=== PATIENT | male | born 1940 | race Caucasian/White ===

== ENCOUNTER 2018-06-06 13:26 | Emergency (ER) | payer OTHER, MEDICARE ==
[2018-06-06] MEDS ORDERED: FENTANYL CITR 100 MCG/2 ML ONE (13:42)
[2018-06-06 13:59] LABS: Absolute Monocytes 0.8 K/uL (0.1-1.3); Absolute Neutrophil 5.8 K/uL (1.8-8.0); Basophils % 0.8 % (0-1.3); Eosinophils % 1.3 % (0-4.4); Hematocrit 29.1 % (39.6-49.0); Lymphocytes % 13.5 % (15.3-44.8); MCH 40.7 pg (27.0-35.0); MCV 115.9 fL (80-100); Monocytes % 9.7 % (3.3-12.3); RBC Red Blood Cell Count 2.51 M/uL (4.33-5.43)
[2018-06-06 14:05] LABS: Protime INR 1.18
[2018-06-06 14:18] LABS: Albumin 3.6 g/dL (3.4-5.0); Bilirubin Direct 0.2 mg/dL (0-0.2); Bilirubin Total 0.5 mg/dL (0.2-1.0); CKMB Creatine Kinase MB 1.3 ng/mL (0.3-3.6); Magnesium 2.2 mg/dL (1.8-2.4); Potassium 4.3 mmol/L (3.5-5.1); Protein, Total 8.2 g/dL (6.4-8.2)
--- NOTE | 2018-06-06 14:58 | RAD REPORT ---
EXAM DESCRIPTION: CT - Chest For Pe Angio - 06/06/2018 2:43 pm CLINICAL HISTORY: Chest pain and shortness of breath COMPARISON: 2016 TECHNIQUE: Dynamically enhanced axial 3 mm thick images of the chest were obtained during administra tion of <100> mL Isovue 370 IV contrast. Coronal and oblique reconstruction images were generated and reviewed. Exam utilizes a protocol for optimal evaluation of pulmonary arterial tree. Maximum intensity projections 3D imaging was utilized All CT scans are performed using dose optimization technique as appropriate and may include automated exposure control or mA/KV adjustment according to patient size. FINDINGS: A pulmonary embolus is not seen. A thoracic aortic aneurysm is not noted. A small right pleural effusion seen. A pericardial effusion is not seen. Moderate right upper lobe and mild left lower lobe alveolar opacities are present. Calcified mediastinal and hilar lymph nodes are noted. IMPRESSION: Negative for a pulmonary embolism. Mild to moderate right lung alveolar opacities likely representing pneumonia. This should be followed until it is clear to help exclude a post obstructive process/underlying mass
[2018-06-06] MEDS ORDERED: CYANOCOBALAMIN 1000MCG/ML INJ IM ONE (15:00)
--- NOTE | 2018-06-06 15:54 | EDPHYS ---
Physician Documentation [facility] Name: Teo Doran Age: 77 yrs Sex: Male : 1940 Arrival Date: 06/06/2018 Time: 13:27 Bed 4 Private MD: Jose Feldman ED Physician Jonnie Barkley HPI: 06/06 13:59 This 77 yrs old Male presents to ER via Wheelchair with complaints of Chest snw Pain. 13:59 Onset: The symptoms/episode began/occurred 3 week(s) ago, and became worse and became snw persistent. Associated signs and symptoms: Pertinent positives: chest pain, shortness of breath. Modifying factors: The patient symptoms are alleviated by nothing, the patient symptoms are aggravated by movement. The patient has not experienced similar symptoms in the past. The patient has been recently seen by a physician: the patient's primary care provider, Dr. Feldman with similar presenting complaints, was given a prescription for pain medications. pt had a fall in Oct. No trauma since, no fever, pain to right chest wall, increases with movement. Saw PCP this week, given muscle relaxer, pain is worse per report. Historical: - Allergies: 13:36 PENICILLINS; sv - Home Meds: 13:36 None [Active]; sv - PMHx: 13:36 None; sv - PSHx: 13:36 None; sv - Immunization history:: Adult Immunizations up to date. - Social history:: Smoking status: Patient/guardian denies using tobacco. - Ebola Screening: : No symptoms or risks identified at this time. ROS: 13:59 Constitutional: Negative for fever, chills, and weight loss, Eyes: Negative for injury, snw pain, redness, and discharge, ENT: Negative for injury, pain, and discharge, Neck: Negative for injury, pain, and swelling, Abdomen/GI: Negative for abdominal pain, nausea, vomiting, diarrhea, and constipation, Back: Negative for injury and pain, : Negative for injury, bleeding, discharge, and swelling, MS/Extremity: Negative for injury and deformity, Skin: Negative for injury, rash, and discoloration, Neuro: Negative for headache, weakness, numbness, tingling, and seizure. 13:59 Cardiovascular: Positive for chest pain, with movement, of the right lateral anterior chest. 13:59 Respiratory: Positive for shortness of breath, at rest. Exam: 13:59 Constitutional: This is a well developed, well nourished patient who is awake, alert, snw and in no acute distress. Head/Face: Normocephalic, atraumatic. Eyes: Pupils equal round and reactive to light, extra-ocular motions intact. Lids and lashes normal. Conjunctiva and sclera are non-icteric and not injected. Cornea within normal limits. Periorbital areas with no swelling, redness, or edema. ENT: Nares patent. No nasal discharge, no septal abnormalities noted. Tympanic membranes are normal and external auditory canals are clear. Oropharynx with no redness, swelling, or masses, exudates, or evidence of obstruction, uvula midline. Mucous membranes moist. Neck: Trachea midline, no thyromegaly or masses palpated, and no cervical lymphadenopathy. Supple, full range of motion without nuchal rigidity, or vertebral point tenderness. No Meningismus. Chest/axilla: Normal chest wall appearance and motion. Nontender with no deformity. No lesions are appreciated. Cardiovascular: Regular rate and rhythm with a normal S1 and S2. No gallops, murmurs, or rubs. Normal PMI, no JVD. No pulse deficits. Respiratory: Lungs have equal breath sounds bilaterally, clear to auscultation and percussion. No rales, rhonchi or wheezes noted. No increased work of breathing, no retractions or nasal flaring. Abdomen/GI: Soft, non-tender, with normal bowel sounds. No distension or tympany. No guarding or rebound. No evidence of tenderness throughout. Back: No spinal tenderness. No costovertebral tenderness. Full range of motion. Skin: Warm, dry with normal turgor. Normal color with no rashes, no lesions, and no evidence of cellulitis. MS/ Extremity: Pulses equal, no cyanosis. Neurovascular intact. Full, normal range of motion. Neuro: Awake and alert, GCS 15, oriented to person, place, time, and situation. Cranial nerves II-XII grossly intact. Motor strength 5/5 in all extremities. Sensory grossly intact. Cerebellar exam normal. Normal gait. Vital Signs: 13:36 BP 149 / 68; Pulse 94; Resp 18; Temp 98.5; Pulse Ox 96% ; Weight 79.38 kg; Height 5 ft. sv 8 in. (172.72 cm); Pain 0/10; 14:30 BP 114 / 68; Pulse 75; Resp 16; Pulse Ox 94% on R/A; ph 15:16 BP 128 / 76; Pulse 70; Resp 16; Pulse Ox 95% on R/A; ph 16:00 BP 117 / 76; Pulse 72; Resp 18; Temp 98.0; Pulse Ox 96% on R/A; ph 13:36 Body Mass Index 26.61 (79.38 kg, 172.72 cm) sv MDM: 13:34 Patient medically screened. snw 15:36 Data reviewed: vital signs, nurses notes. Data interpreted: Pulse oximetry: on room air snw is 95 %. Interpretation: acceptable. Counseling: I had a detailed discussion with the patient and/or guardian regarding: the historical points, exam findings, and any diagnostic results supporting the discharge/admit diagnosis, lab results, radiology results, the need for outpatient follow up, to return to the emergency department if symptoms worsen or persist or if there are any questions or concerns that arise at home. Special discussion: Based on the history and exam findings, there is no indication for further emergent testing or inpatient evaluation. I discussed with the patient/guardian the need to see the primary care provider for further evaluation of the symptoms. 15:52 Response to treatment: the patient's symptoms have mildly improved after treatment, snw patient is well hydrated. 06/06 13:35 Order name: Blood Culture Adult (2) snw 06/06 13:35 Order name: Basic Metabolic Panel; Complete Time: 14:24 snw 06/06 13:35 Order name: CBC with Diff; Complete Time: 16:06 snw 06/06 13:35 Order name: Ckmb; Complete Time: 14:24 snw 06/06 13:35 Order name: CPK; Complete Time: 14:24 snw 06/06 13:35 Order name: LFT's; Complete Time: 14:24 snw 06/06 13:35 Order name: Magnesium; Complete Time: 14:24 snw 06/06 13:35 Order name: NT PRO-BNP; Complete Time: 14:24 snw 06/06 13:35 Order name: PT-INR; Complete Time: 14:11 snw 06/06 13:35 Order name: Ptt, Activated; Complete Time: 14:11 snw 06/06 13:35 Order name: Troponin (emerg Dept Use Only); Complete Time: 14:24 snw 06/06 13:35 Order name: CT Chest For PE Angio; Complete Time: 15:07 snw 06/06 13:35 Order name: Blood Culture EDWA 06/06 14:05 Order name: CBC Smear Scan; Complete Time: 16:06 EDMS 06/06 13:35 Order name: EKG; Complete Time: 13:36 snw 06/06 13:35 Order name: Cardiac monitoring; Complete Time: 13:36 snw 06/06 13:35 Order name: EKG - Nurse/Tech; Complete Time: 13:37 snw 06/06 13:35 Order name: IV Saline Lock; Complete Time: 13:42 snw 06/06 13:35 Order name: Labs collected and sent; Complete Time: 13:42 snw 06/06 13:35 Order name: O2 Per Protocol; Complete Time: 13:37 snw 06/06 13:35 Order name: O2 Sat Monitoring; Complete Time: 13:37 snw Administered Medications: 13:42 Drug: fentaNYL (PF) 25 mcg Route: IVP; Site: right antecubital; ss 14:10 Follow up: Response: No adverse reaction; Pain is decreased ss 15:15 Drug: Cyanocobalamin 1000 mcg Route: IM; Site: right deltoid; ph 16:04 Follow up: Response: No adverse reaction ph 15:55 Drug: LevaQUIN 500 mg Route: PO; ph 16:05 Follow up: Response: No adverse reaction ph Disposition: 06/07 08:25 Co-signature as Attending Physician, Jonnie Barkley MD I agree with the assessment and wa plan of care. Disposition: 06/06/18 15:53 Discharged to Home. Impression: Pneumonia, unspecified organism, Anemia, unspecified. - Condition is Stable. - Discharge Instructions: Anemia, Nonspecific, Costochondritis, Community-Acquired Pneumonia, Adult. - Prescriptions for Levaquin 500 mg Oral Tablet - take 1 tablet by ORAL route once daily for 10 days; 10 tablet. Tessalon Perles 100 mg Oral Capsule - take 1 capsule by ORAL route every 8 hours As needed; 15 capsule. Albuterol Sulfate 90 mcg/actuation - inhale 1-2 puff by INHALATION route every 4-6 hours; 1 Inhaler. - Medication Reconciliation Form, Thank You Letter, Antibiotic Education, Prescription Opioid Use form. - Follow up: Jose Feldman MD; When: 2 - 3 days; Reason: Recheck today's complaints, Continuance of care, Re-evaluation by your physician. Follow up: Emergency Department; When: As needed; Reason: Trouble breathing, Worsening of condition. Signatures: Dispatcher [employer] EDKari Perez RN RN dm5 Caitlin Miguel RN RN Petra Keys, VP COMMUNICATIONS-C VP COMMUNICATIONS-Csnw Ngoc Figueroa RN RN Cyndi Ware RN RN [facility], MD IFEOMA Cristina tx Corrections: (The following items were deleted from the chart) 06/06 16:14 15:53 06/06/2018 15:53 Discharged to Home. Impression: Pneumonia, unspecified organism; dm5 Anemia, unspecified. Condition is Stable. Forms are Medication Reconciliation Form, Thank You Letter, Antibiotic Education, Prescription Opioid Use. Follow up: Jose Feldman; When: 2 - 3 days; Reason: Recheck today's complaints, Continuance of care, Re-evaluation by your physician. Follow up: Emergency Department; When: As needed; Reason: Trouble breathing, Worsening of condition. snw
--- NOTE | 2018-06-06 15:54 | ER ---
Nurse's Notes [facility] Name: Teo Doran Age: 77 yrs Sex: Male : 1940 Arrival Date: 06/06/2018 Time: 13:27 Bed 4 Private MD: Jose Feldman Diagnosis: Pneumonia, unspecified organism;Anemia, unspecified Presentation: 06/06 13:31 Presenting complaint: Patient states: right sided chest pain and SOB for a couple of sv weeks, worse with movement. Pt seen his PCP on Sat and was prescribed muscle relaxers but with no relief. Pt denies injury or fall. Transition of care: patient was not received from another setting of care. Onset of symptoms was May 2018. Care prior to arrival: None. 13:31 Method Of Arrival: Wheelchair sv 13:31 Acuity: JACOBO 3 sv 13:55 Risk Assessment: Do you want to hurt yourself or someone else? Patient reports no ph desire to harm self or others. Initial Sepsis Screen: Does the patient meet any 2 criteria? No. Patient's initial sepsis screen is negative. Does the patient have a suspected source of infection? No. Patient's initial sepsis screen is negative. Historical: - Allergies: 13:36 PENICILLINS; sv - Home Meds: 13:36 None [Active]; sv - PMHx: 13:36 None; sv - PSHx: 13:36 None; sv - Immunization history:: Adult Immunizations up to date. - Social history:: Smoking status: Patient/guardian denies using tobacco. - Ebola Screening: : No symptoms or risks identified at this time. Screenin:54 Abuse screen: Denies threats or abuse. Denies injuries from another. Nutritional ph screening: No deficits noted. Tuberculosis screening: No symptoms or risk factors identified. Fall Risk No fall in past 12 months (0 pts). No secondary diagnosis (0 pts). IV access (20 points). Ambulatory Aid- None/Bed Rest/Nurse Assist (0 pts). Gait- Normal/Bed Rest/Wheelchair (0 pts) Mental Status- Oriented to own ability (0 pts). Total Foster Fall Scale indicates No Risk (0-24 pts). Assessment: 13:51 General: Appears in no apparent distress. comfortable, slender, well groomed, Behavior ph is calm, cooperative, appropriate for age, Denies fever, chills. Pain: Complains of pain in right lateral anterior chest Pain does not radiate. Pain began " 3 weeks ago". Neuro: Level of Consciousness is awake, alert, obeys commands, Oriented to person, place, time, situation, Denies weakness dizziness, headache. Cardiovascular: Reports chest pain, shortness of breath, Denies nausea, syncope, Capillary refill < 3 seconds Patient's skin is warm and dry. Rhythm is sinus rhythm Chest pain is located in right anterior chest wall is aggravated by activity. 13:53 Respiratory: Reports shortness of breath pain with movement Airway is patent ph Respiratory effort is even, unlabored, Respiratory pattern is regular, symmetrical, Breath sounds are clear bilaterally. Denies cough. GI: No signs and/or symptoms were reported involving the gastrointestinal system. Derm: Skin is intact, is healthy with good turgor, Skin is pink, warm \\T\\ dry. Musculoskeletal: Circulation, motion, and sensation intact. Range of motion: intact in all extremities. 15:15 Reassessment: Patient appears in no apparent distress at this time. Patient and/or ph family updated on plan of care and expected duration. Pain level reassessed. Patient is alert, oriented x 3, equal unlabored respirations, skin warm/dry/pink. Pt reports that pain has improved after IV pain medication, ERP at bedside to speak w/ pt and SO about results, awaiting d/c. Vital Signs: 13:36 BP 149 / 68; Pulse 94; Resp 18; Temp 98.5; Pulse Ox 96% ; Weight 79.38 kg; Height 5 ft. sv 8 in. (172.72 cm); Pain 0/10; 14:30 BP 114 / 68; Pulse 75; Resp 16; Pulse Ox 94% on R/A; ph 15:16 BP 128 / 76; Pulse 70; Resp 16; Pulse Ox 95% on R/A; ph 16:00 BP 117 / 76; Pulse 72; Resp 18; Temp 98.0; Pulse Ox 96% on R/A; ph 13:36 Body Mass Index 26.61 (79.38 kg, 172.72 cm) sv ED Course: 13:27 Patient arrived in ED. as 13:27 Jose Feldman MD is Private Physician. as 13:30 Cyndi Ware RN is Primary Nurse. ph 13:31 Arm band placed on right wrist. Patient placed in an exam room, on a stretcher. sv 13:34 Petra Keys FNP-C [facility]. snw 13:34 Jonnie Barkley MD is Attending Physician. snw 13:36 Triage completed. sv 13:39 Radiology exam delayed due to lab results not completed at this time. (BUN/Creatinine). nj 13:40 Initial lab(s) drawn, by me, sent to lab. First set of blood cultures drawn by me. ph Inserted saline lock: 20 gauge in right antecubital area, using aseptic technique. Blood collected. 13:47 EKG done, by instrument/control technician. reviewed by Petra PONCE. sm3 13:55 Patient has correct armband on for positive identification. Placed in gown. Bed in low ph position. Call light in reach. Side rails up X 1. alarm security or surveillance monitor on. Pulse ox on. NIBP on. Warm blanket given. 13:56 Patient maintains SpO2 saturation greater than 95% on room air. ph 14:[address] via stretcher. mw3 14:43 CT Chest For PE Angio In Process Unspecified. EDMS 15:19 No provider procedures requiring assistance completed. ph 15:53 Jose Feldman MD is Referral Physician. snw 16:10 IV discontinued, intact, bleeding controlled, No redness/swelling at site. Pressure ph dressing applied. Administered Medications: 13:42 Drug: fentaNYL (PF) 25 mcg Route: IVP; Site: right antecubital; ss 14:10 Follow up: Response: No adverse reaction; Pain is decreased ss 15:15 Drug: Cyanocobalamin 1000 mcg Route: IM; Site: right deltoid; ph 16:04 Follow up: Response: No adverse reaction ph 15:55 Drug: LevaQUIN 500 mg Route: PO; ph 16:05 Follow up: Response: No adverse reaction ph Outcome: 15:53 Discharge ordered by . snw 16:14 Patient left the ED. dm5 16:14 Discharged to home ambulatory, with significant other. ph 16:14 Condition: good 16:14 Discharge instructions given to patient, significant other, Instructed on discharge instructions, follow up and referral plans. medication usage, Demonstrated understanding of instructions, follow-up care, medications, Prescriptions given X 3. Signatures: Dispatcher [employer] Kari Acuna RN RN dm5 Caitlin Miguel RN RN sv Petra Keys, ADMITTING REPRESENTATIVE-C ADMITTING REPRESENTATIVE-Csnw Tran Lange Shelby, RN RN Cyndi Ware RN RN [facility], Corina Rodriguez 3 Cortney Mena mw3 Corrections: (The following items were deleted from the chart) 16:05 10:00 LevaQUIN 500 mg PO ph ph
[2018-06-06] MEDS ORDERED: levoFLOXacin 500 MG TAB ONE (16:01)
[2018-06-06 16:04] LABS: Blood Morphology Comment NOTED (NOT SEEN); Macrocytosis 3+; Platelet Estimate ADEQ; Urine White Blood Cell Casts OK
--- NOTE | 2018-06-07 08:34 | EKG ---
Test Date: 2018-06-06 Test Time: 13:31:42 Hide Washer: AG/S MEASUREMENT RESULTS: Intervals: Rate: 90 MN: 176 QRSD: 84 QT: 340 QTc: 415 Triplett: P: 35 MN: 176 QRS: -9 T: 34 INTERPRETIVE STATEMENTS: Normal sinus rhythm Normal ECG Compared to ECG 10/03/2005 07:53:00 No significant changes Electronically Signed On 06-07-18 08:33:55 CDT by Hitesh Vera
== END 2018-06-06 16:14 | disposition home or self-care (01) ==
LOC: ER 13:26
DX: J18.9 Pneumonia, unspecified organism (principal); D64.9 Anemia, unspecified; Z88.0 Allergy status to penicillin
CPT/HCPCS: 36415; 71275; 80048; 80076; 82550; 82553; 83735; 83880; 84484; 85025; 85610; 85730; 87040 ×2; 93005; 96372; 96374; 99285; J3010; J3420; Q9967

== ENCOUNTER 2020-11-07 12:32 | Inpatient (IN) | payer OTHER, MEDICARE ==
[2020-11-07 13:36] LABS: Absolute Lymphocytes (CBC) 1.3 K/uL (0.7-4.9); Hematocrit 21.4 % (39.6-49.0); Lymphocytes % 14.4 % (15.3-44.8); MPV 8.2 fL (7.6-11.3); RBC Red Blood Cell Count 1.67 M/uL (4.33-5.43)
--- NOTE | 2020-11-07 14:07 | RAD REPORT ---
EXAM DESCRIPTION: CT - Abdomen Pelvis W Contrast - 11/07/2020 1:49 pm CLINICAL HISTORY: Anemia, Severe SOB COMPARISON: Abdomen Pelvis W Contrast dated 07/02/2018 TECHNIQUE: Biphasic, helical CT imaging of the abdomen and pelvis was performed following 100 ml non -ionic IV contrast. No oral contrast given. All CT scans are performed using dose optimization technique as appropriate and may include automated exposure control or mA/KV adjustment according to patient size. FINDINGS: Extensive interstitial thickening present in both lung bases. This is not new but is more pronounced. This could be fibrosis with superimposed edema or infiltrate or simply progressive fibros is. No consolidated mass, pneumothorax or pleural effusion. Mild cardiomegaly with no pericardial or effusion. No suspicious liver lesion identifiable. Liver parenchymal attenuation is borderline for fatty infilt ration. Numerous granulomatous calcifications in the normal size spleen. No acute pancreatic process. Gallbladder and biliary tree are also without suspicious finding. Gallstones can be occult on CT guy ging. Symmetric renal function is seen with no hydronephrosis or suspicious renal mass. No pyelonephritis o r acute parenchymal process. No bladder abnormalities. No adrenal abnormalities. Calcifications are p resent in the prostate gland which is not abnormally enlarged. No dilated bowel loops or bowel wall thickening. Moderate stool volume seen throughout the colon. No appendicitis findings. No free air, free fluid or inflammatory stranding. No hernia, mass or bulky l ymphadenopathy. Disc and bone degenerative changes are present. No pathologic bone process seen. Significant by conca vity to the T11 body. Significant collapse of the superior endplate T9 -T10. Central endplate has par tially collapsed and L2 with peripheral wall height maintained. IMPRESSION: Contrast enhanced CT abdomen and pelvis showing no acute or emergent finding. Above detailed abdominal/pelvic findings are not substantially different the 2018 comparison. Prominent interstitial thickening in each lung base superimposed on a baseline fibrosis. Finding is p rogressive from 2018 and could be true progressive fibrosis, interstitial edema, infiltrate or a comb ination.
[2020-11-07 14:42] VITALS: BMI 20.2
[2020-11-07 14:52] LABS: BUN Blood Urea Nitrogen 24 mg/dL (7-18); Bicarbonate 28 mmol/L (21-32); Glucose Level 106 mg/dL (74-106); Potassium 4.9 mmol/L (3.5-5.1); Sodium Level 140 mmol/L (136-145); Transferrin 179 mg/dL (200-360)
[2020-11-07 15:00] LABS: Blood Morphology Comment NOTED (NOT SEEN); Macrocytosis 3+; Platelet Estimate ADEQ
[2020-11-07] MEDS ORDERED: NA CHLORIDE 0.9% 250 ML ONE (15:48)
[2020-11-07 16:42] LABS: Urine Appearance CLEAR; Urine Bilirubin NEGATIVE (NEG); Urine Blood NEGATIVE (NEG); Urine Color YELLOW; Urine Glucose NEGATIVE (NEG); Urine Protein NEGATIVE (NEG); Urine Specific Gravity >=1.030 (1.005-1.030); Urine Urobilinogen 0.2 mg/dL (0.2-1.0); Urine pH 6.5 (5.0-7.0)
[2020-11-07 16:48] LABS: Urine Microscopic Reflex NO UMIC
[2020-11-08] MEDS ORDERED: Ringers Lactate 1,000 ML IV ONE (11:45)
[2020-11-08] MEDS: METOCLOPRAMIDE 10 MG/2mL INJ IV SCH ×4 (12:00→20:52)
[2020-11-08] MEDS ORDERED: EPINEPHRINE/PF 1 MG/ML AMP ONE (12:03)
--- NOTE | 2020-11-08 12:18 | PN ---
The patient states that he does not feel that much different, although he is status post 2 units of b lood and his hemoglobin is 9 and unchanged. He is scheduled for an EGD, which will be done sometime today. Depending on that results, disposition will be made. HR/MODL Voice ID: [id number] Report ID: [id number]
[2020-11-08] MEDS ORDERED: propofoL 200 MG/20 ML VIAL IV ONE (12:24)
[2020-11-08] MEDS ORDERED: LIDOCAINE 1% MPF 30 ML VIAL ONE (12:24)
--- NOTE | 2020-11-08 13:22 | ENDO RPT ---
[address], [address] EGD PROCEDURE REPORT EXAM DATE: 11/08/2020 PATIENT NAME: Teo Doran MR#: [id number] BIRTHDATE: 1940 ATTENDING: Jonnie Dias Dr STATUS: inpatient - [facility] CRAFT COORDINATOR: Emily Riggs RN INDICATIONS: The patient is a 80 yr old Male here for an EGD due to anemia PROCEDURE PERFORMED: EGD with biopsy MEDICATIONS: Per Anesthesia. TOPICAL ANESTHETIC: none CONSENT: The patient understands the risks and benefits of the procedure and understands that these risks include, but are not limited to: sedation, allergic reaction, infection, perforation and/or bleeding. Alternative means of evaluation and treatment include, among others: physical exam, x-rays, and/or surgical intervention. The patient elects to proceed with this endoscopic procedure. DESCRIPTION OF PROCEDURE: During intra-op preparation period all mechanical medical equipment was checked for proper function. Hand hygiene and appropriate measures for infection prevention was taken. Procedure, possible complications, and alternatives including but not limited to the possibility of bleeding, perforation, tear, infection, sepsis, need for surgery, need for blood transfusion, and anesthesia related complications were explained to the patient. After the risks, benefits and alternatives of the procedure were thoroughly explained, Informed consent was verified, confirmed and timeout was successfully executed by the treatment team. The patient was placed in the left lateral position. The patient was anesthetized with topical anesthesia. Through the anesthetized oropharyngeal area, the scope was passed without any difficulty. The EG-[id number] ([id number]) endoscope was introduced through the mouth and advanced to the second portion of the duodenum. Retroflexed views revealed a small hiatal hernia. The gastroscope was then slowly withdrawn and removed. A small hiatal hernia was found. Duodenitis was found in the bulb of the duodenum. Multiple gastric biopsies were obtained and sent to pathology. Small bowel biopsies obtained with history of unexplained anemia. ADVERSE EVENTS: There were no complications. IMPRESSIONS: 1. Small hiatal hernia 2. Duodenitis in the bulb of the duodenum, s/p gastric biopsies 3. Small bowel biopsies obtained with history of unexplained anemia RECOMMENDATIONS: 1. await biopsy results 2. acid suppression therapy 3. colonoscopy REPEAT EXAM: Jonnie Dias Dr eSigned: Jonnie Dias Dr 11/08/2020 1:22 PM cc: Jose Feldman CPT CODES: ICD9 CODES: PATIENT NAME: Teo Doran MR#: [id number]
--- NOTE | 2020-11-08 13:23 | ENDO RPT ---
[address], [address] EGD PROCEDURE REPORT EXAM DATE: 11/08/2020 PATIENT NAME: Teo Doran MR#: [id number] BIRTHDATE: 1940 ATTENDING: Jonnie Dias Dr STATUS: inpatient - [facility] MANAGING DIRECTOR: Emily Riggs RN INDICATIONS: The patient is a 80 yr old Male here for an EGD due to anemia PROCEDURE PERFORMED: EGD with biopsy MEDICATIONS: Per Anesthesia. TOPICAL ANESTHETIC: none CONSENT: The patient understands the risks and benefits of the procedure and understands that these risks include, but are not limited to: sedation, allergic reaction, infection, perforation and/or bleeding. Alternative means of evaluation and treatment include, among others: physical exam, x-rays, and/or surgical intervention. The patient elects to proceed with this endoscopic procedure. DESCRIPTION OF PROCEDURE: During intra-op preparation period all mechanical medical equipment was checked for proper function. Hand hygiene and appropriate measures for infection prevention was taken. Procedure, possible complications, and alternatives including but not limited to the possibility of bleeding, perforation, tear, infection, sepsis, need for surgery, need for blood transfusion, and anesthesia related complications were explained to the patient. After the risks, benefits and alternatives of the procedure were thoroughly explained, Informed consent was verified, confirmed and timeout was successfully executed by the treatment team. The patient was placed in the left lateral position. The patient was anesthetized with topical anesthesia. Through the anesthetized oropharyngeal area, the scope was passed without any difficulty. The [id number] ([id number]) endoscope was introduced through the mouth and advanced to the second portion of the duodenum. Retroflexed views revealed a small hiatal hernia. The gastroscope was then slowly withdrawn and removed. A small hiatal hernia was found. Duodenitis was found in the bulb of the duodenum. Multiple gastric biopsies were obtained and sent to pathology. Small bowel biopsies obtained with history of unexplained anemia. ADVERSE EVENTS: There were no complications. IMPRESSIONS: 1. Small hiatal hernia 2. Duodenitis in the bulb of the duodenum, s/p gastric biopsies 3. Small bowel biopsies obtained with history of unexplained anemia RECOMMENDATIONS: 1. await biopsy results 2. acid suppression therapy 3. colonoscopy REPEAT EXAM: Jonnie Dias Dr eSigned: Jonnie Dias Dr 11/08/2020 1:22 PM cc: Jose Feldman CPT CODES: ICD9 CODES: PATIENT NAME: Teo Doran MR#: [id number]
[2020-11-08] MEDS: MAGNESIUM CITRATE 300 ML BOT PO SCH (14:33)
[2020-11-08] MEDS: GOLYTELY 4000 ML PO SCH (17:21)
--- NOTE | 2020-11-08 19:19 | CON ---
Date of Consultation: 11/08/2020 Reason For Consultation: Anemia of unknown etiology with a hemoglobin of 6.4 on admission. History Of Present Illness: The patient is an 80-year-old white male with history of compression fracture, trauma to the back and chronic reflux disease. The patient presented to the hospital due to anemia. Hemoglobin found to be 6.4 as an outpatient. Brought to hospital. Patient denies any melena, hematochezia, masses, coffee-ground emesis, hematuria, dysuria, polydipsia. He has had a colonoscopy 3 years ago with a colon polyp found at that time approximately in June 2017. No prior EGD. He also reports weight loss, anorexia, shortness of breath, fatigue over the past 3 months. As per the primary care physician the patient has been complaining of weight loss over the past few years actually with negative work up. Patient has also had a pulmonary workup due to findings on lung exam as in the past. Supposedly June 2018, pulmonary consult in [place], [place] was negative for evaluation. Past Medical History: Significant for gastroesophageal reflux disease, and trauma to the back with compression fracture. Otherwise, patient takes no medicines except for reflux disease medications at home. Allergies: TO PENICILLIN IT APPEARS. Family History: Patient is , 2 children. No tobacco. No alcohol, except for occasional rare during the year. Family History: Father of myocardial infarction. Mother of complications of diabetes. Allergies: TO PENICILLIN STATED ABOVE. Medications: In hospital include Protonix and Ensure formulation. Review of Systems: Patient has fatigue, weight loss, anorexia, shortness of breath. He denies any melena, hematochezia, hematemesis, coffee-ground emesis, hematuria, dysuria, polydipsia, chest pain, seizure, syncope, lower extremity edema, muscle aches, joint aches, backaches, depression, anxiety, seizures, syncope, chest pain. He does have some shortness of breath with weight loss and fatigue. Physical Examination: Vital Signs: He is 5 feet 10 inches, 141 pounds. BMI of 20.2 kg/sq m. He has a temperature of 97.5, pulse 71, respirations 16, blood pressure 118/58, O2 saturation 96%. General: This is an elderly male, lying in bed, mildly thin. HEENT: Normocephalic, atraumatic. Anicteric. Pupils equal, round, and reactive to light. Extraocular movements are intact. Oropharynx is clear. Neck: Supple, no masses. Respirations: Clear to auscultation bilaterally. Cardiac: Regular rate and rhythm. Abdomen: Positive bowel sounds. Soft, nontender, nondistended. No hepatosplenomegaly. Extremities: No clubbing, cyanosis, or edema. 2+ pulses. Neuro: Alert and oriented x3. Grossly nonfocal. 5/5 motor sensation to light touch. Laboratory Data: Patient has a hemoglobin of 6.4 at admission, 7.2 after 1 unit and up to 9.6 after 2 units of packed RBCs today. Yesterday white cell count of 8.7, MCV of 128.7, platelet count 363, polys of 75%, lymphocytes 14%, monocytes 9%, eosinophils 2%. Sodium 140, potassium 3.9, chloride 108, bicarb 28, BUN of 24, creatinine of 1.12, glucose 106, calcium 8.9, iron 219, TIBC of 251, transferrin 179 with iron saturation of 87.3%. Vitamin B12 greater than 2000. No folate checked, ferritin of 7036.1. UA was negative. COVID testing was negative. CT abdomen and pelvis, prominent interstitial thickening of lung base superimposed on baseline fibrosis, progressive since 2018. Could be progressive fibrosis, interstitial edema, infiltrate or combination. Anemia with hemoglobin 6.4, up to 9.6 after 2 units of packed RBCs, MCV of 128.7. Vitamin B12 greater than 2000, folate not checked, we need to check that. Iron saturation 87.3%, ferritin 736, possible territory hemochromatosis. His last colonoscopy 3 years ago with colon polyp found in June 2017. Weight loss, anorexia, shortness of breath, fatigue over the past 2-[address] showing infiltrates, positive edema in the bases, could be a lung disease. However, pulmonary consult in June 2018 was negative. Impression: 1. Anemia of unknown etiology 2. Weight loss, anorexia, shortness of breath and fatigue for 3 months. 3. History of trauma, compression fracture, and reflux disease. Recommendation: 1. Proceed with EGD and consider repeat colonoscopy. 2. Check folate. 3. Check hereditary hemochromatosis HFE gene analysis. 4. Check hepatitis panel and alpha-fetoprotein. 5. Pulmonology followup on discharge for changes in CT noted. JOVANNY/ROEL Voice ID: [id number] Report ID: [id number]
[2020-11-08] MEDS: ENSURE ENLIVE 237 ML CAN PO SCH (20:52)
--- NOTE | 2020-11-08 22:55 | HP ---
Date of Admission: 11/07/2020 Entrance Complaint: General malaise, weight loss, dyspnea. History Of Present Illness: The patient presented to the office a couple days prior to this admissio n with the above-outlined symptoms. He states these have been going on for the past few weeks, howev er they have become increasingly more severe specially the fatigue. He has been anorectic as well an d a blood work revealed the significant anemia enough to require transfusions and that is why arrange ments were being put in place to admit him for transfusions and further evaluation. The patient has had significant weight loss over the past few months and associated with this has been some depressio n of his appetite. No nausea, vomiting, or change of bowel movements. Past History: The patient has had episodes of weight loss before and also had some chest discomfort and general malaise a couple years ago. Workup at that time including EGD and colonoscopy and vascul ar workup were essentially normal. The patient has not been on any significant medications other papo n vitamins. Family History: Noncontributory. Social History: Nonsmoker and nondrinker. Physical Examination: General: The patient is a thin elderly male, in no acute distress, with stable vital signs. Head and Neck: Normocephalic. Pupils are equal and reactive to light and accommodation. Fundi nega tive. Trachea midline. Thyroid not palpable. ENT: Negative. Chest: Clear to P and A. Cardiovascular: PMI midclavicular line. Heart sounds normal. Peripheral pulses are present and equ al bilaterally. Abdomen: Minimal tenderness in paraumbilical midepigastric area. No guarding, rebound, tenderness, or rigidity. Bowel sounds normal. Extremities: Good tone and movement bilaterally. Reflexes physiologic Rectal: Deferred. Impression: Anemia, significant severe weight loss, unknown etiology. Plan: The patient will be admitted and transfused with 2 units of blood. Consultation was obtained with the hydraulic lift driver for EGD and probable colonoscopy. HR/MODL Voice ID: [id number]
[2020-11-09] MEDS: METOCLOPRAMIDE 10 MG/2mL INJ IV SCH (01:38)
--- NOTE | 2020-11-09 06:33 | EKG ---
Test Date: 2020-11-07 Test Time: 14:06:37 Digital Content Coordinator: NORMA MEASUREMENT RESULTS: Intervals: Rate: 76 SD: 166 QRSD: 74 QT: 368 QTc: 414 Beaver: P: 31 SD: 166 QRS: -19 T: 63 INTERPRETIVE STATEMENTS: Normal sinus rhythm Normal ECG Compared to ECG 06/06/2018 13:31:42 No significant changes Electronically Signed On 11-09-20 06:28:00 INTELLECTUAL PROPERTY MANAGER by Ming Elizabeth
[2020-11-09 08:53] LABS: Absolute Lymphocytes (CBC) 1.2 K/uL (0.7-4.9); Basophils % 1.5 % (0-1.3); Hematocrit 29.4 % (39.6-49.0); Lymphocytes % 16.1 % (15.3-44.8); MPV 8.1 fL (7.6-11.3)
[2020-11-09 08:59] LABS: Potassium 4.5 mmol/L (3.5-5.1)
[2020-11-09] MEDS: ENSURE ENLIVE 237 ML CAN PO SCH ×2 (09:00→12:29)
[2020-11-09] MEDS: PANTOPRAZOLE 40MG TABLET PO SCH ×2 (09:00→12:28)
[2020-11-09 10:05] LABS: Anisocytosis 3+; Blood Morphology Comment NOTED (NOT SEEN); Platelet Estimate ADEQ; White Blood Cell Scan OK (OK)
[2020-11-09 10:06] LABS: Macrocytosis 1+
[2020-11-09] MEDS: Ringers Lactate 1,000 ML IV ONE ×2 (10:45→11:02)
[2020-11-09] MEDS ORDERED: propofoL 200 MG/20 ML VIAL IV ONE ×2 (10:54)
[2020-11-09] MEDS ORDERED: LIDOCAINE 1% MPF 5 ML VIAL ONE (10:55)
--- NOTE | 2020-11-09 11:12 | ENDO RPT ---
[address], [address] COLONOSCOPY PROCEDURE REPORT EXAM DATE: 11/09/2020 PATIENT NAME: Teo Doran MR #: [id number] BIRTHDATE: 1940 ATTENDING: Jonnie Dias Dr STATUS: outpatient PRESS OPERATOR [employer]: Emily Riggs RN, Kandy Estevez RN, and Yeni Carey CST INDICATIONS: The patient is a 80 yr old Male here for a colonoscopy due to anemia and weight loss PROCEDURE PERFORMED: Colonoscopy MEDICATIONS: Per Anesthesia. ESTIMATED BLOOD LOSS: None CONSENT: The patient understands the risks and benefits of the procedure and understands that these risks include, but are not limited to: sedation, allergic reaction, infection, perforation and/or bleeding. Alternative means of evaluation and treatment include, among others: physical exam, x-rays, and/or surgical intervention. The patient elects to proceed with this endoscopic procedure. DESCRIPTION OF PROCEDURE: During intra-op preparation period all mechanical medical equipment was checked for proper function. Hand hygiene and appropriate measures for infection prevention was taken. Procedure, possible complications, alternatives including, but not limited to possibility of bleeding, perforation, tear, infection, sepsis, need for surgery, need for blood transfusion, were explained to the patient. After the risks, benefits and alternatives of the procedure were thoroughly explained, Informed consent was verified, confirmed and timeout was successfully executed by the treatment team. The patient was placed in the left lateral position. A digital rectal exam was performed and revealed no abnormalities of the rectum. After appropriate level of anesthesia, the scope was passed. The EC-[id number] ([id number]) endoscope was introduced through the anus and advanced to the terminal ileum which was intubated for a short distance. The quality of the prep was fair. The instrument was then slowly withdrawn as the colon was fully examined. Scope withdrawal time was 7 minutes. COLON FINDINGS: Small internal hemorrhoids were found. Retroflexed views revealed small hemorrhoids. The scope was then completely withdrawn from the patient and the procedure terminated. ADVERSE EVENTS: There were no complications. IMPRESSIONS: 1. Small internal hemorrhoids 2. Intubation to terminal ileum RECOMMENDATIONS: fiber rich diet RECALL: Colonoscopy not scheduled due to age (80 y.o.) Jonnie [address] Dr eSigned: Jonnie Dias Dr 11/09/2020 11:12 AM cc: Jose Feldman M.D. CPT CODES: ICD9 CODES: PATIENT NAME: Teo Doran MR#: [id number]
[2020-11-09 11:37] VITALS: O2SAT 98
[2020-11-09] MEDS: MAGNESIUM CITRATE 300 ML BOT PO SCH (13:00)
[2020-11-09] MEDS: GOLYTELY 4000 ML PO SCH (13:21)
[2020-11-09 15:39] VITALS: BP 155/67; TEMP 98.4
--- NOTE | 2020-11-09 15:47 | PN ---
Date of Progress Note: 11/09/2020 The patient feels somewhat better, but not I would think, significantly after his 2 blood transfusion brought his blood count up. Obviously, he has a macrocytic anemia. Questionable PA. He will be re ferred to hematology as an outpatient. He is without a problem. His endoscopy exams showed some pat hology indicative of the anemia. He will be followed as mentioned in an outpatient basis. HR/MODL Voice ID: [id number] Report ID: [id number]
--- NOTE | 2021-01-22 21:40 | DS ---
Date of Discharge: 11/09/2020 Chief Complaint: The patient was admitted to the hospital, being seen in the office for increasing c omplaint of fatigue. Hemoglobin done as part of routine workup revealed 6.4. He was therefore admit taryn for transfusion and further workup. The patient has also had some weight loss and evaluated by [facility] a year ago and when admitted, he was transfused with 2 units. He got his hemoglobin up to 9, although clinically stated he does feel that much better. An EGD was done, revealed a smal l area of . Biopsies were taken as he had a macrocytic anemia. In view of thes e findings, he was discharged to follow up with Hematology in fair condition on 11/09. Final Diagnoses: Macrocytic anemia of unknown etiology, duodenitis, weight loss of unknown etiology. HR/MODL Voice ID: [id number] Report ID: [id number]
== END 2020-11-09 17:12 | disposition home or self-care (01) | DRG 812 ==
LOC: 2ND 12:32 → OBSVTOIN 11-09 11:49
PROVIDERS: ADMIT Family Medicine; ATTEND Family Medicine
PROC: 30233N1 Transfusion of Nonautologous Red Blood Cells into Peripheral Vein, Percutaneous Approach (ICD-10-PCS; 2020-11-09)
PROC: 0DB68ZX Excision of Stomach, Via Natural or Artificial Opening Endoscopic, Diagnostic (ICD-10-PCS; principal; 2020-11-09 10:00)
DX: D53.9 Nutritional anemia, unspecified (principal); K44.9 Diaphragmatic hernia without obstruction or gangrene; K29.80 Duodenitis without bleeding; K21.9 Gastro-esophageal reflux disease without esophagitis; R63.4 Abnormal weight loss; K64.8 Other hemorrhoids; R63.0 Anorexia; Z88.0 Allergy status to penicillin; Z20.822 Contact with and (suspected) exposure to COVID-19
CPT/HCPCS: 36415; 36430; 74177; 80048; 81003; 82105; 82274; 82607; 82746; 83540; 84207; 84466; 85014; 85018; 85025; 85044; 85652; 86038; 86850; 86900; 86901; 88305; 88312; 93005; G0378; J0171; J2704; J2765; J7050; J7120; P9016; Q9967; U0003

== ENCOUNTER 2021-01-17 07:13 | Day surgery (SDC) | payer OTHER, MEDICARE ==
[2021-01-17] MEDS ORDERED: NA CHLORIDE 0.9% 250 ML ONE ×2 (08:51→12:42)
[2021-01-17 09:20] VITALS: O2SAT 98; BMI 18.6
[2021-01-17 11:40] VITALS: BP 110/57; TEMP 98.8
[2021-01-17 17:46] LABS: Hematocrit 25.1 % (39.6-49.0)
== END 2021-01-17 17:00 | disposition home or self-care (01) ==
LOC: DS 07:13
PROVIDERS: ATTEND Internal Medicine Hematology & Oncology
DX: D46.9 Myelodysplastic syndrome, unspecified (principal); D63.8 Anemia in other chronic diseases classified elsewhere
CPT/HCPCS: 36415; 86900; 86850; 86901; 85018; 85014; 36430; P9016 ×2; J7050 ×2

== ENCOUNTER 2021-02-27 09:22 | Emergency (ER) | payer OTHER, MEDICARE ==
--- OUTSIDE RECORDS SUMMARY | 2021-02-27 09:25 | XMS REPORT | Continuity of Care Document ---
:1940 Author Organization [facility] t Address [address] [place] [address] Dr. Carolina [address] [place] [id number] Care Team Providers Name Role Phone Unavailable Unavailable Unavailable Problems This patient has no known problems. Allergies, Adverse Reactions, Alerts This patient has no known allergies or adverse reactions. Medications This patient has no known medications. Procedures This patient has no known procedures. Encounters Start End Encounter Admission Attending Care Care Encounter Source Date/Time Date/Time Type Type Clinicians Facility Department ID 2020-12-19 2020-12-19 Outpatient [id number] [address] 09:29:00 09:29:00 Results This patient has no known results.
[2021-02-27 11:35] LABS: Absolute Lymphocytes (CBC) 0.9 K/uL (0.7-4.9); Basophils % 2.2 % (0-1.3); Hematocrit 26.1 % (39.6-49.0); Lymphocytes % 8.5 % (15.3-44.8); MPV 8.1 fL (7.6-11.3); RBC Red Blood Cell Count 2.32 M/uL (4.33-5.43)
[2021-02-27] MEDS ORDERED: NA CHLORIDE 0.9% 1,000 ML ONE (11:40)
[2021-02-27] MEDS ORDERED: HYDROCODONE/APAP 5/325 MG TAB ONE (11:40)
[2021-02-27 11:47] LABS: Protime INR 1.2
[2021-02-27 11:55] LABS: ALT/SGPT 18 U/L (12-78); AST/SGOT 15 U/L (15-37); Albumin 4.1 g/dL (3.4-5.0); Alkaline Phosphatase 87 U/L (45-117); BUN Blood Urea Nitrogen 27 mg/dL (7-18); Bicarbonate 31 mmol/L (21-32); Bilirubin Direct 0.2 mg/dL (0-0.2); Bilirubin Total 0.6 mg/dL (0.2-1.0); CKMB Creatine Kinase MB 1.1 ng/mL (0.3-3.6); Creatine Phosphokinase 44 U/L (39-308); Glucose Level 118 mg/dL (74-106); Lipase 53 U/L (73-393); Magnesium 2.4 mg/dL (1.8-2.4); Potassium 4.7 mmol/L (3.5-5.1); Protein, Total 7.9 g/dL (6.4-8.2); Sodium Level 140 mmol/L (136-145); Troponin (Emerg Dept Use Only) < 0.02 ng/mL (0.0-0.045)
--- NOTE | 2021-02-27 12:06 | RAD REPORT ---
EXAM DESCRIPTION: CT - Head C Spine Cap Wo Con - 02/27/2021 11:02 am TECHNIQUE: Computed axial tomography of the head and cervical spine was obtained. Coronal and sagitt al reconstruction was performed Computed axial tomography of the chest, abdomen and pelvis was obtained. Contrast was not requested. All CT scans are performed using dose optimization technique as appropriate and may include automated exposure control or mA/KV adjustment according to patient size. CLINICAL HISTORY: Head and neck injury with chest and abdominal pain status post fall COMPARISON: CT chest 2018 FINDINGS: An intracranial bleed is not seen. Mild to moderate low-density areas within periventricular, deep an d subcortical white matter likely ischemic changes secondary to small vessel disease The ventricles are normal in caliber. An extra-axial fluid collection is not noted. . Fluid within the sinuses/mastoids is not seen. A cervical fracture is not seen. No dislocation is noted. The evaluation of mediastinum, grace, vessels, solid organs and bowel are limited secondary to the lac k of contrast administration. A mediastinal hematoma is not noted. A pleural effusion is not seen. A lung contusion is not present. Bilateral pulmonary fibrosis. Minimally displaced fractures right seventh and posterior ribs The liver,spleen, pancreas, adrenals,kidneys and bladder do not demonstrate a traumatic injury. .Moderate compression fracture T8 vertebral body appears subacute. Additional old thoracic and lumbar vertebral body fractures. Small nonobstructing right renal calculi. Pulmonary and splenic granulomata. Calcified mediastinal and calcified hilar lymph nodes IMPRESSION: 1. No acute intracranial abnormality is seen. 2. A cervical fracture is not visualized. If the patient continues have symptoms to suggest intracran ial/spinal cord pathology MRI be recommended 3. Moderate subacute compression fracture T8 vertebral body. No retropulsion of fracture fragment int o spinal canal. 4. Minimally displaced fractures right posterior seventh and eighth ribs. No pneumothorax
--- NOTE | 2021-02-27 12:58 | EDPHYS ---
Physician Documentation [facility] Name: Teo Doran Age: 80 yrs Sex: Male : 1940 Arrival Date: 02/27/2021 Time: 09:27 Bed 20 Private MD: Jose Feldman ED Physician Meli Hou HPI: 02/27 10:57 This 80 yrs old Male presents to ER via Wheelchair with complaints of Fall ma2 Injury. 10:57 Details of fall: The patient fell from an upright position. Onset: The symptoms/episode ma2 began/occurred gradually, 1 day(s) ago. Severity of symptoms: At their worst the symptoms were mild, in the emergency department the symptoms are unchanged. The patient has not experienced similar symptoms in the past. Historical: - Allergies: : PENICILLINS; sv - Immunization history:: Client reports receiving the 2nd dose of the Covid vaccine, Client reports receiving the 1st dose of the Covid vaccine. - Social history:: Smoking status: Patient denies any tobacco usage or history of. Patient/guardian denies using alcohol, street drugs, The patient lives with family. - Family history:: not pertinent. ROS: 10:57 Constitutional: Negative for fever, chills, and weight loss. ma2 10:57 All other systems are negative. Exam: 10:57 Constitutional: This is a well developed, well nourished patient who is awake, alert, ma2 and in no acute distress. Eyes: Pupils equal round and reactive to light, extra-ocular motions intact. Lids and lashes normal. Conjunctiva and sclera are non-icteric and not injected. Cornea within normal limits. Periorbital areas with no swelling, redness, or edema. ENT: Nares patent. No nasal discharge, no septal abnormalities noted. Tympanic membranes are normal and external auditory canals are clear. Oropharynx with no redness, swelling, or masses, exudates, or evidence of obstruction, uvula midline. Mucous membranes moist. Neck: Trachea midline, no thyromegaly or masses palpated, and no cervical lymphadenopathy. Supple, full range of motion without nuchal rigidity, or vertebral point tenderness. No Meningismus. Chest/axilla: Normal chest wall appearance and motion. Nontender with no deformity. No lesions are appreciated. Cardiovascular: Regular rate and rhythm with a normal S1 and S2. No gallops, murmurs, or rubs. Normal PMI, no JVD. No pulse deficits. Respiratory: Lungs have equal breath sounds bilaterally, clear to auscultation and percussion. No rales, rhonchi or wheezes noted. No increased work of breathing, no retractions or nasal flaring. Abdomen/GI: Soft, non-tender, with normal bowel sounds. No distension or tympany. No guarding or rebound. No evidence of tenderness throughout. MS/ Extremity: Pulses equal, no cyanosis. Neurovascular intact. Full, normal range of motion. Neuro: Awake and alert, GCS 15, oriented to person, place, time, and situation. Cranial nerves II-XII grossly intact. Motor strength 5/5 in all extremities. Sensory grossly intact. Cerebellar exam normal. Normal gait. Vital Signs: 09:31 BP 113 / 70; Pulse 50; Resp 18; Temp 97.3; Pulse Ox 97% ; Weight 58.97 kg; Height 5 ft. sv 9 in. (175.26 cm); 10:41 BP 93 / 66; Pulse 81; Resp 16; Pulse Ox 97% ; bp 11:33 BP 123 / 77; Pulse 84; Resp 16; Pulse Ox 95% ; bp 13:00 BP 133 / 88; Pulse 89; Resp 17; Pulse Ox 95% ; bp 14:00 BP 128 / 74; Pulse 78; Resp 16; Temp 97.5; Pulse Ox 93% ; bp 09:31 Body Mass Index 19.20 (58.97 kg, 175.26 cm) sv MDM: 10:39 Patient medically screened. [facility] 12:55 Differential diagnosis: abrasion, contusion, fracture, laceration. Data reviewed: vital ny2 signs, nurses notes. Counseling: I had a detailed discussion with the patient and/or guardian regarding: the historical points, exam findings, and any diagnostic results supporting the discharge/admit diagnosis, the presence of at least one elevated blood pressure reading (>120/80) during this emergency department visit, the need for outpatient follow up. ED course: has 2 ribs fracture however pain is well controlled, ct shows possible spine fracture however he states had this few weeks ago, no back pain or tenderness at this time . 02/27 10:37 Order name: Basic Metabolic Panel ma2 02/27 10:37 Order name: CBC with Diff ma2 02/27 10:37 Order name: Ckmb ma2 02/27 10:37 Order name: CPK ma2 02/27 10:37 Order name: Hepatic Function ny2 02/27 10:37 Order name: Lipase; Complete Time: 12:38 ma2 02/27 10:37 Order name: Magnesium; Complete Time: 12:38 ma2 02/27 10:37 Order name: Protime (+inr); Complete Time: 12:38 ma2 02/27 10:37 Order name: Ptt, Activated; Complete Time: 12:38 ma2 02/27 10:37 Order name: Troponin (emerg Dept Use Only); Complete Time: 12:38 ma2 02/27 10:37 Order name: Basic Metabolic Panel; Complete Time: 12:38 EDMS 02/27 10:37 Order name: CBC with Automated Diff EDMS 02/27 10:37 Order name: CKMB Creatine Kinase MB; Complete Time: 12:38 EDMS 02/27 10:37 Order name: Creatine Phosphokinase; Complete Time: 12:38 EDMS 02/27 10:37 Order name: EKG; Complete Time: 10:37 ma2 02/27 10:37 Order name: Cardiac monitoring; Complete Time: 11:12 ny2 02/27 10:37 Order name: EKG - Nurse/Tech; Complete Time: 14:04 ny2 02/27 10:37 Order name: IV Saline Lock; Complete Time: 11:33 ma2 02/27 10:37 Order name: Labs collected and sent; Complete Time: 11:32 ma2 02/27 10:37 Order name: NPO; Complete Time: 11:12 ny2 02/27 10:37 Order name: O2 Per Protocol; Complete Time: 11:12 ny2 02/27 10:37 Order name: O2 Sat Monitoring; Complete Time: 11:12 ma2 02/27 10:37 Order name: Liver (Hepatic) Function; Complete Time: 12:38 EDMS 02/27 10:51 Order name: CT Traumagram (Head C Spine CAP wo con); Complete Time: 12:38 ma2 02/27 11:38 Order name: Manual Differential EDMS 02/27 10:37 Order name: Urine Dipstick-Ancillary (obtain specimen); Complete Time: 14:05 ma2 Administered Medications: 11:30 Drug: NS 0.9% 1000 ml Route: IV; Rate: 1 bolus; Site: right forearm; bp 14:04 Follow up: IV Status: Completed infusion; IV Intake: 1000ml bp 11:30 Drug: Elliott (HYDROcodone-acetaminophen) 5 mg-325 mg 1 tabs Route: PO; bp 13:03 Follow up: Response: Pain is decreased bp 13:00 Drug: morphine 4 mg Route: IVP; Site: right forearm; bp 14:00 Follow up: Response: Pain is decreased bp 13:00 Drug: Zofran (Ondansetron) 4 mg Route: IVP; Site: right antecubital; bp 14:00 Follow up: Response: No adverse reaction bp Disposition: 02/27/21 12:57 Discharged to Home. Impression: Multiple fractures of ribs, right side. - Condition is Stable. - Discharge Instructions: Rib Fracture, [id number]. - Prescriptions for Diclofenac Sodium 75 mg Oral Tablet Sustained Release - take 1 tablet by ORAL route 2 times per day; 30 tablet. - Medication Reconciliation Form, Thank You Letter, Antibiotic Education, Prescription Opioid Use form. - Follow up: Private Physician; When: Tomorrow; Reason: If symptoms return. Signatures: Dispatcher [employer] Caitlin Nolan RN RN Saeid Guzman RN RN bp Alzahri, Mohammad, MD MD ma2 Corrections: (The following items were deleted from the chart) 11:00 10:37 Head C Spine MPR Wo Con+CT.RAD.BRZ ordered. [facility] 14:05 12:57 02/27/2021 12:57 Discharged to Home. Impression: Multiple fractures of ribs, bp right side. Condition is Stable. Prescriptions for Diclofenac Sodium 75 mg Oral Tablet Sustained Release - take 1 tablet by ORAL route 2 times per day; 30 tablet. and Forms are Medication Reconciliation Form, Thank You Letter, Antibiotic Education, Prescription Opioid Use. Follow up: Private Physician; When: Tomorrow; Reason: If symptoms return. ma2
--- NOTE | 2021-02-27 12:58 | ER ---
Nurse's Notes [facility] Name: Teo Doran Age: 80 yrs Sex: Male : 1940 Arrival Date: 02/27/2021 Time: 09:27 Bed 20 Private MD: Jose Feldman Diagnosis: Multiple fractures of ribs, right side Presentation: 02/27 09:30 Chief complaint: Patient states: s/p fall after getting dizzy yesterday and landed on sv the floor on right side. c/o right side/rib pain. Care prior to arrival: None. Mechanism of Injury: Fall from standing position. Trauma event details: Injury occurred in the [facility], Injury occurred: at home. Injury occurred: February 26, 2021. 09:30 Method Of Arrival: Wheelchair sv 09:30 Acuity: JACOBO 3 sv 09:31 Coronavirus screen: Client denies travel out of the [place] in the last 14 days. At this sv time, the client does not indicate any symptoms associated with coronavirus-19. Ebola Screen: No symptoms or risks identified at this time. Risk Assessment: Do you want to hurt yourself or someone else? Patient reports no desire to harm self or others. Onset of symptoms was February 26, 2021. 09:31 Initial Sepsis Screen: Does the patient meet any 2 criteria? No. Patient's initial sv sepsis screen is negative. Does the patient have a suspected source of infection? No. Patient's initial sepsis screen is negative. Triage Assessment: 10:37 General: Appears in no apparent distress. uncomfortable, Behavior is cooperative, bp appropriate for age, anxious. Pain: Complains of pain in right lateral anterior chest. EENT: No deficits noted. Neuro: No deficits noted. Cardiovascular: No deficits noted. Respiratory: No deficits noted. GI: No signs and/or symptoms were reported involving the gastrointestinal system. : No signs and/or symptoms were reported regarding the genitourinary system. Derm: No deficits noted. Musculoskeletal: No deficits noted. Trauma Activation: Not Applicable Physician: ED Physician; Name: ; Notified At: ; Arrived At: Physician: General Surgeon; Name: ; Notified At: ; Arrived At: Physician: Radiology; Name: ; Notified At: ; Arrived At: Physician: Respiratory; Name: ; Notified At: ; Arrived At: Physician: Lab; Name: ; Notified At: ; Arrived At: Historical: - Allergies: 09:31 PENICILLINS; sv - Immunization history:: Client reports receiving the 2nd dose of the Covid vaccine, Client reports receiving the 1st dose of the Covid vaccine. - Social history:: Smoking status: Patient denies any tobacco usage or history of. Patient/guardian denies using alcohol, street drugs, The patient lives with family. - Family history:: not pertinent. Screenin:38 Abuse screen: Denies threats or abuse. Denies injuries from another. Nutritional bp screening: No deficits noted. Tuberculosis screening: No symptoms or risk factors identified. Fall Risk None identified. Assessment: 10:38 General: SEE TRIAGE NOTE. bp 11:31 Reassessment: No changes from previously documented assessment. Patient and/or family bp updated on plan of care and expected duration. Pain level reassessed. Patient is alert, oriented x 3, equal unlabored respirations, skin warm/dry/pink. PT RETURNED FROM CT. 13:00 Reassessment: No changes from previously documented assessment. Patient and/or family bp updated on plan of care and expected duration. Pain level reassessed. 14:01 Reassessment: PT D/C HOME VIA W/C WITH FAMILY, DX WITH MULTIPLE RIGHT RIB FX. bp Vital Signs: 09:31 BP 113 / 70; Pulse 50; Resp 18; Temp 97.3; Pulse Ox 97% ; Weight 58.97 kg; Height 5 ft. sv 9 in. (175.26 cm); 10:41 BP 93 / 66; Pulse 81; Resp 16; Pulse Ox 97% ; bp 11:33 BP 123 / 77; Pulse 84; Resp 16; Pulse Ox 95% ; bp 13:00 BP 133 / 88; Pulse 89; Resp 17; Pulse Ox 95% ; bp 14:00 BP 128 / 74; Pulse 78; Resp 16; Temp 97.5; Pulse Ox 93% ; bp 09:31 Body Mass Index 19.20 (58.97 kg, 175.26 cm) sv ED Course: 09:27 Patient arrived in ED. mr 09:27 Jose Feldman MD is Private Physician. mr 09:31 Triage completed. sv 09:31 Arm band placed on. sv 10:36 Saeid Cameron, ELANA is Primary Nurse. bp 10:37 Meli Hou MD is Attending Physician. ma2 10:38 Patient has correct armband on for positive identification. Bed in low position. Call bp light in reach. Side rails up X2. 11:02 CT Traumagram (Head C Spine CAP wo con) In Process Unspecified. EDMS 11:30 Inserted saline lock: 22 gauge in right forearm, using aseptic technique. Blood bp collected. 11:35 Hepatic Function Sent. sv 11:35 CPK Sent. sv 11:35 Ckmb Sent. sv 11:35 CBC with Diff Sent. sv 11:35 Basic Metabolic Panel Sent. sv 13:00 No provider procedures requiring assistance completed. IV discontinued, intact, bp bleeding controlled, No redness/swelling at site. Pressure dressing applied. Administered Medications: 11:30 Drug: NS 0.9% 1000 ml Route: IV; Rate: 1 bolus; Site: right forearm; bp 14:04 Follow up: IV Status: Completed infusion; IV Intake: 1000ml bp 11:30 Drug: [place] (HYDROcodone-acetaminophen) 5 mg-325 mg 1 tabs Route: PO; bp 13:03 Follow up: Response: Pain is decreased bp 13:00 Drug: morphine 4 mg Route: IVP; Site: right forearm; bp 14:00 Follow up: Response: Pain is decreased bp 13:00 Drug: Zofran (Ondansetron) 4 mg Route: IVP; Site: right antecubital; bp 14:00 Follow up: Response: No adverse reaction bp Intake: 14:04 IV: 1000ml; Total: 1000ml. bp Outcome: 12:57 Discharge ordered by . ma2 13:00 Discharged to home via wheelchair, with family. bp 13:00 Condition: stable 13:00 Discharge instructions given to patient, family, Instructed on discharge instructions, follow up and referral plans. medication usage, Demonstrated understanding of instructions, follow-up care, medications, Prescriptions given X 1. 14:05 Patient left the ED. bp Signatures: Dispatcher [employer] EDMS Caitlin Miguel, Carmen Lora RN, Brian, RN RN bp Alzahri, Mohammad, MD MD ma2 Corrections: (The following items were deleted from the chart) 09:33 09:31 Pulse 50bpm; Resp 18bpm; Pulse Ox 97%; Temp 97.3F; 58.97 kg; Height 5 ft. 9 in.; sv BMI: 19.2; sv
[2021-02-27 13:20] LABS: Anisocytosis 3+; Blood Morphology Comment NOTED (NOT SEEN); Macrocytosis 2+; Platelet Estimate ADEQ; Poikilocytosis 1+
[2021-02-27] MEDS ORDERED: MORPHINE 4 MG/ML SYR ONE (13:32)
[2021-02-27] MEDS ORDERED: ONDANSETRON 4 MG/2 ML VIAL ONE (13:33)
[2021-02-27 14:22] VITALS: BP 128/74; TEMP 97.5; O2SAT 93
--- NOTE | 2021-02-28 11:41 | EKG ---
Test Date: 2021-02-27 Test Time: 11:54:54 Rail Car Operator: BP MEASUREMENT RESULTS: Intervals: Rate: 77 OR: 150 QRSD: 70 QT: 376 QTc: 425 [place]: P: 85 OR: 150 QRS: -23 T: 35 INTERPRETIVE STATEMENTS: Normal sinus rhythm Normal ECG Compared to ECG 11/07/2020 14:06:37 No significant changes Electronically Signed On 02-28-21 11:39:36 CDT by Ming Elizabeth
== END 2021-02-27 14:05 | disposition home or self-care (01) ==
LOC: ER 09:22
DX: S22.41XA Multiple fractures of ribs, right side, initial encounter for closed fracture (principal); W19.XXXA Unspecified fall, initial encounter
CPT/HCPCS: 93005; 85025; 80048; 36415; 83735; 82550; 85610; 80076; 85730; 84484; 82553; 83690; 70450; 71250; 72125; J7030; J2405; 99284

== ENCOUNTER 2021-03-22 18:03 | Inpatient (IN) | payer OTHER, MEDICARE ==
--- OUTSIDE RECORDS SUMMARY | 2021-03-22 18:05 | XMS REPORT | Continuity of Care Document ---
:1940 Author Organization [facility] t Address [address] [place] [address] Dr. Carolina [address] [place] [id number] Care Team Providers Name Role Phone Unavailable [...]
[2021-03-22 19:14] LABS: Basophils % 3.4 % (0-1.3); Hematocrit 22.1 % (39.6-49.0); MPV 8.6 fL (7.6-11.3); RBC Red Blood Cell Count 1.91 M/uL (4.33-5.43)
[2021-03-22 19:17] LABS: Protime INR 1.16
[2021-03-22] MEDS ORDERED: ONDANSETRON 4 MG/2 ML VIAL ONE (19:18)
[2021-03-22] MEDS ORDERED: MORPHINE 2 MG/ML SYR ONE (19:18)
--- NOTE | 2021-03-22 19:19 | RAD REPORT ---
EXAM DESCRIPTION: RAD - Chest Single View - 03/22/2021 7:07 pm CLINICAL HISTORY: SOB Chest pain. COMPARISON: Chest Pa And Lat (2 Views) dated 11/02/2020; Chest Pa And Lat (2 Views) dated 07/08/2018; Chest Pa And Lat (2 Views) dated 09/15/2016; CHEST PA AND LAT 2 VIEW dated 10/23/2013 FINDINGS: Portable technique limits examination quality. Emphysematous changes are present throughout the lungs. No focal infiltrate detected. The heart is up per limit normal in size. No displaced fractures. IMPRESSION: Mild diffuse COPD.
[2021-03-22 19:21] LABS: ALT/SGPT 17 U/L (12-78); AST/SGOT 31 U/L (15-37); Albumin 3.6 g/dL (3.4-5.0); Alkaline Phosphatase 129 U/L (45-117); BUN Blood Urea Nitrogen 32 mg/dL (7-18); Bicarbonate 26 mmol/L (21-32); Bilirubin Direct 0.2 mg/dL (0-0.2); Bilirubin Total 0.6 mg/dL (0.2-1.0); Glucose Level 81 mg/dL (74-106); Magnesium 2.1 mg/dL (1.8-2.4); NT PRO-BNP 449 pg/mL (<450); Potassium 4.2 mmol/L (3.5-5.1); Sodium Level 143 mmol/L (136-145); Troponin (Emerg Dept Use Only) < 0.02 ng/mL (0.0-0.045)
[2021-03-22 19:31] LABS: Anisocytosis 2+; Blood Morphology Comment NOTED (NOT SEEN); Macrocytosis 2+; Platelet Estimate ADEQ
--- NOTE | 2021-03-22 20:00 | RAD REPORT ---
EXAM DESCRIPTION: CTAbdomen Pelvis W Contrast - 03/22/2021 7:39 pm CLINICAL HISTORY: Abdominal pain. abdominal pain COMPARISON: Abdomen Pelvis W Contrast dated 11/07/2020; Abdomen Pelvis W Contrast dated 07/02/2018 ; Bone Imaging Whole Body dated 03/01/2021; Head C Spine Cap Wo Con dated 02/27/2021 TECHNIQUE: Biphasic CT imaging of the abdomen and pelvis was performed with 100 ml non-ionic IV cont rast. All CT scans are performed using dose optimization technique as appropriate and may include automated exposure control or mA/KV adjustment according to patient size. FINDINGS: Emphysematous changes are present in both the lung bases. There is small oblong soft tissue lesions seen in the fat anterior to the right lobe of the liver briana suring 8 mm. Small soft tissue density lesions also noted in the fat of the left upper quadrant. Ther e is a vague low-density area seen within the anterior right lobe of the liver measuring 16 x 10 mm. No intra or extrahepatic biliary tree dilatation seen. There is evidence of an irregular soft tissue mass within the left upper quadrant fat measuring appro ximately 8.0 x 5.1 cm. This soft tissue appears to insinuate to the level of the splenic hilum. Small soft tissue lesions are also seen in the omental fat of the right sided abdomen. Soft tissue density focal fullness is noted in the pancreatic tail measuring 3.2 x 1.9 cm, a signific ant change since the prior study. Several calculi are present in the upper right kidney without hydronephrosis. Mild left hydronephrosi s. Significant stool is present in the rectosigmoid colon. No bowel obstruction. Compression fracture affects the T11 vertebral body with significant right paraspinal soft tissue thi ckening measuring up to 11 mm. Mild central compression deformity affects the L2 vertebral body with mild paraspinal thickening on the left measuring up to 5 mm. IMPRESSION: Evidence of an irregular soft tissue mass in the left upper quadrant between the spleen and the stomach noted. This is suspicious for a neoplastic process. Tail of the pancreas demonstrates a thickened appearance compared to the 11/07/2020 study. Compression deformities of T11 and L2 are present with paraspinal soft tissue thickening. In particul ar, the T11 fracture soft tissue component appears more prominent than on prior study. This could pot entially indicate pathologic etiology.
--- NOTE | 2021-03-22 20:21 | EDPHYS ---
Physician Documentation [facility] Name: Teo Doran Age: 80 yrs Sex: Male : 1940 Arrival Date: 03/22/2021 Time: 18:11 Bed 5 Private MD: ED Physician Malvin Shelton HPI: 03/22 20:16 This 80 yrs old Male presents to ER via EMS with complaints of Abdominal jmm Pain, Shortness Of Breath. 20:16 The patient presents with abdominal pain. Onset: The symptoms/episode began/occurred jmm gradually, 2 month(s) ago. The symptoms do not radiate. Associated signs and symptoms: Pertinent positives: abdominal pain. This is an 80 year old male that presents to the ED with worsening chronic abdominal pain. Which intensified this evening. Maeve complains of sob. Is currently being treated for anemia. . Historical: - Allergies: 18:21 PENICILLINS; ld1 - Home Meds: 18:21 fentanyl 25 mcg/hr Topical pt72 [Active]; esomeprazole magnesium 40 mg oral cpDR 1 cap ld1 once daily [Active]; tramadol 50 mg Oral tab 1 tab every 4-6 hours [Active]; midodrine 5 mg oral tab 1 tabs 3 times per day [Active]; zolpidem 5 mg Oral tab 1 tab once daily [Active]; - PMHx: 18:21 None; ld1 - PSHx: 18:21 None; ld1 - Immunization history:: Adult Immunizations up to date. - Social history:: Smoking status: Patient denies any tobacco usage or history of. Patient/guardian denies using alcohol. ROS: 20:16 Constitutional: Negative for fever, chills, and weight loss, Cardiovascular: Negative jmm for chest pain, palpitations, and edema. 20:16 Respiratory: Positive for shortness of breath. 20:16 Abdomen/GI: Positive for abdominal pain. 20:16 All other systems are negative. Exam: 20:16 Constitutional: This is a well developed, well nourished patient who is awake, alert, jmm and in no acute distress. Head/Face: atraumatic. Eyes: EOMI, no conjunctival erythema appreciated ENT: Moist Mucus Membranes Neck: Trachea midline, Supple Chest/axilla: Normal chest wall appearance and motion. Cardiovascular: Regular rate and rhythm. No edema appreciated Respiratory: Normal respirations, no respiratory distress appreciated 20:16 Abdomen/GI: Inspection: abdomen appears normal, Bowel sounds: normal, Palpation: soft, mild abdominal tenderness, in the left upper quadrant and left lower quadrant. 20:16 Back: pain, is absent, ROM is normal. 20:16 Musculoskeletal/extremity: ROM: intact in all extremities. 20:16 Skin: Appearance: Color: normal in color. 20:16 Neuro: Orientation: is normal, Mentation: is normal, Memory: is normal. 20:16 Psych: Behavior/mood is pleasant, cooperative. Vital Signs: 18:17 BP 153 / 80; Pulse 114; Resp 18; Temp 98.5(O); Pulse Ox 98% on 2 lpm NC; Pain 8/10; ld1 18:53 BP 112 / 68; Pulse 97; Resp 18; Temp 98.5(O); Pulse Ox 100% on R/A; Weight 58.97 kg; ld1 Height 5 ft. 10 in. (177.80 cm); Pain 10/10; 20:00 BP 115 / 72; Pulse 99; Resp 28; Pulse Ox 95% on 2 lpm NC; jb4 21:30 BP 110 / 71; Pulse 91; Resp 20 S; Pulse Ox 97% ; ad5 18:53 Body Mass Index 18.65 (58.97 kg, 177.80 cm) ld1 MDM: 18:24 Patient medically screened. [facility] 20:19 Data reviewed: vital signs, nurses notes. Counseling: I had a detailed discussion with [facility] the patient and/or guardian regarding: the historical points, exam findings, and any diagnostic results supporting the discharge/admit diagnosis, lab results, radiology results, the need for further work-up and treatment in the hospital. ED course: I discussed the patient with Dr. Feldman whom accepted the patient for admission. . 03/22 18:30 Order name: Basic Metabolic Panel; Complete Time: 19:23 [facility] 03/22 18:30 Order name: CBC with Diff; Complete Time: 19:58 [facility] 03/22 18:30 Order name: LFT's; Complete Time: 19:23 [facility] 03/22 18:30 Order name: Magnesium; Complete Time: 19:23 [facility] 03/22 18:30 Order name: NT PRO-BNP; Complete Time: 19:23 [facility] 03/22 18:30 Order name: PT-INR; Complete Time: 19:58 [facility] 03/22 18:30 Order name: Troponin (emerg Dept Use Only); Complete Time: 19:23 [facility] 03/22 18:30 Order name: Type And Screen [facility] 03/22 19:31 Order name: Manual Differential; Complete Time: 19:58 EDNM 03/22 20:28 Order name: Basic Metabolic Panel [facility] 03/22 20:28 Order name: Basic Metabolic Panel [facility] 03/22 20:28 Order name: CBC with Automated Diff ED[facility] 03/22 20:28 Order name: CBC with Automated Diff [facility] 03/22 18:30 Order name: XRAY Chest (1 view); Complete Time: 19:23 [facility] 03/22 18:30 Order name: EKG; Complete Time: 18:31 [facility] 03/22 18:30 Order name: Cardiac monitoring; Complete Time: 18:39 [facility] 03/22 18:30 Order name: EKG - Nurse/Tech; Complete Time: 18:41 [facility] 03/22 18:30 Order name: IV Saline Lock; Complete Time: 18:42 [facility] 03/22 18:30 Order name: Labs collected and sent; Complete Time: 18:53 [facility] 03/22 18:30 Order name: O2 Per Protocol; Complete Time: 18:39 [facility] 03/22 18:30 Order name: O2 Sat Monitoring; Complete Time: 18:39 [facility] 03/22 19:24 Order name: CT Abd/Pelvis - IV Contrast Only; Complete Time: 20:07 [facility] 03/22 20:28 Order name: CONS Physician Consult [facility] 03/22 20:28 Order name: Regular [facility] 03/22 21:30 Order name: SARS-COV-2 RT PCR EDNM Administered Medications: No medications were administered Disposition: 03/22/21 20:21 Hospitalization ordered by Jose Feldman for Observation. Preliminary diagnosis are Generalized intra-abdominal and pelvic swelling, mass and lump, Dehydration, Anemia, unspecified, Dyspnea. - Bed requested for Telemetry/MedSurg (observation). - Status is Observation. ad5 - Condition is Stable. - Problem is new. - Symptoms are unchanged. Addendum: 03/25/2021 07:03 Co-signature as Attending Physician, Malvin Shelton MD. r n Signatures: Dispatcher [employer] EDNM Urbano Chavez PA PA [facility] Keegan Isabel, RN Malvin Zambrano MD MD rn Dibbern, Lauren, RN RN ld1 Arnoldo Caldwella ad5 Corrections: (The following items were deleted from the chart) 03/22 20:38 20:21 CORONAVIRUS+MR.LAB.BRZ ordered. EDNM EDNM 22:11 20:21 Hospitalization Ordered by Jose Feldman MD for Observation. Preliminary em diagnosis is Generalized intra-abdominal and pelvic swelling, mass and lump; Dehydration; Anemia, unspecified; Dyspnea. Bed requested for Telemetry/MedSurg (observation). Status is Observation. Condition is Stable. Problem is new. Symptoms are unchanged. [facility] 23:05 22:11 03/22/2021 20:21 Hospitalization Ordered by Jose Feldman MD for Observation. ad5 Preliminary diagnosis is Generalized intra-abdominal and pelvic swelling, mass and lump; Dehydration; Anemia, unspecified; Dyspnea. Bed requested for Telemetry/MedSurg (observation). Status is Observation. Condition is Stable. Problem is new. Symptoms are unchanged. em
--- NOTE | 2021-03-22 20:21 | ER ---
Nurse's Notes [facility] Name: Teo Doran Age: 80 yrs Sex: Male : 1940 Arrival Date: 03/22/2021 Time: 18:11 Bed 5 Private MD: Diagnosis: Generalized intra-abdominal and pelvic swelling, mass and lump;Dehydration;Anemia, unspecified;Dyspnea Presentation: 03/22 18:17 Chief complaint: EMS states: ABD PAIN, SOB X 5 MONTHS. Coronavirus screen: At this ld1 time, the client does not indicate any symptoms associated with coronavirus-19. Ebola Screen: No symptoms or risks identified at this time. Initial Sepsis Screen: Does the patient meet any 2 criteria? No. Patient's initial sepsis screen is negative. Does the patient have a suspected source of infection? No. Patient's initial sepsis screen is negative. Risk Assessment: Do you want to hurt yourself or someone else? Patient reports no desire to harm self or others. Onset of symptoms was October 2020. 18:17 Method Of Arrival: EMS: [facility] ld1 18:17 Acuity: JACOBO 3 ld1 Triage Assessment: 18:21 General: Appears in no apparent distress. comfortable, Behavior is calm, cooperative, ld1 appropriate for age. Pain: Complains of pain in right upper quadrant and right lower quadrant Pain does not radiate. Pain currently is 8 out of 10 on a pain scale. Quality of pain is described as sharp, stabbing, Pain began PT states this pain has been occurring for approximately a year now. Is intermittent. EENT: No signs and/or symptoms were reported regarding the EENT system. Neuro: Level of Consciousness is awake, alert, obeys commands, Oriented to person, place, time, situation, Appropriate for age. Cardiovascular: Capillary refill < 3 seconds Patient's skin is warm and dry. Rhythm is sinus rhythm. Respiratory: Airway is patent Respiratory effort is even, unlabored, Respiratory pattern is regular, symmetrical. GI: Abdomen is flat, non-distended, Abd is soft and non tender X 4 quads. Reports lower abdominal pain, upper abdominal pain. : No signs and/or symptoms were reported regarding the genitourinary system. Derm: No signs and/or symptoms reported regarding the dermatologic system. Musculoskeletal: No signs and/or symptoms reported regarding the musculoskeletal system. Historical: - Allergies: 18:21 PENICILLINS; ld1 - Home Meds: 18:21 fentanyl 25 mcg/hr Topical pt72 [Active]; esomeprazole magnesium 40 mg oral cpDR 1 cap ld1 once daily [Active]; tramadol 50 mg Oral tab 1 tab every 4-6 hours [Active]; midodrine 5 mg oral tab 1 tabs 3 times per day [Active]; zolpidem 5 mg Oral tab 1 tab once daily [Active]; - PMHx: 18:21 None; ld1 - PSHx: 18:21 None; ld1 - Immunization history:: Adult Immunizations up to date. - Social history:: Smoking status: Patient denies any tobacco usage or history of. Patient/guardian denies using alcohol. Screenin:24 Abuse screen: Denies threats or abuse. Denies injuries from another. Nutritional ld1 screening: No deficits noted. Tuberculosis screening: No symptoms or risk factors identified. Fall Risk IV access (20 points). Assessment: 18:24 Reassessment: See triage assessment. ld1 18:53 Reassessment: Patient appears in no apparent distress at this time. No changes from ld1 previously documented assessment. Patient is alert, oriented x 3, equal unlabored respirations, skin warm/dry/pink. 19:00 Reassessment: Pt is resting comfortably in bed with no s/s of pain or distress noted. jb4 Respirations remain even, and tachypneic. Family is at the bedside. 19:58 Reassessment: Patient appears in no apparent distress at this time. No changes from jb4 previously documented assessment. Patient and/or family updated on plan of care and expected duration. Pain level reassessed. 21:00 Reassessment: Patient appears in no apparent distress at this time. Patient and/or ad5 family updated on plan of care and expected duration. Pain level reassessed. Patient is alert, oriented x 3, equal unlabored respirations, skin warm/dry/pink. Vital Signs: 18:17 BP 153 / 80; Pulse 114; Resp 18; Temp 98.5(O); Pulse Ox 98% on 2 lpm NC; Pain 8/10; ld1 18:53 BP 112 / 68; Pulse 97; Resp 18; Temp 98.5(O); Pulse Ox 100% on R/A; Weight 58.97 kg; ld1 Height 5 ft. 10 in. (177.80 cm); Pain 10/10; 20:00 BP 115 / 72; Pulse 99; Resp 28; Pulse Ox 95% on 2 lpm NC; jb4 21:30 BP 110 / 71; Pulse 91; Resp 20 S; Pulse Ox 97% ; ad5 18:53 Body Mass Index 18.65 (58.97 kg, 177.80 cm) ld1 ED Course: 18:11 Patient arrived in ED. 18:15 Urbano Chavez PA is PHCP. [facility] 18:15 Malvin Shelton MD is Attending Physician. [facility] 18:17 Nicole Suarez, RN is Primary Nurse. ld1 18:19 Triage completed. ld1 18:21 Arm band placed on right wrist. ld1 18:24 Patient has correct armband on for positive identification. Bed in low position. Call ld1 light in reach. Side rails up X2. site monitor on. Pulse ox on. NIBP on. Door closed. Noise minimized. Warm blanket given. 18:24 Maintain EMS IV. Dressing intact. Good blood return noted. Site clean \T\ dry. Gauge \T\ ld 1 site: 20G RAC. 19:05 XRAY Chest (1 view) In Process Unspecified. EDMS 19:06 Primary Nurse role handed off by Nicole Suarez, ELANA [facility] 19:06 Herberth Edwards, RN is Primary Nurse. [facility] 19:39 CT Abd/Pelvis - IV Contrast Only In Process Unspecified. EDMS 20:20 Jose Feldman MD is Hospitalizing Provider. [facility] 22:23 No provider procedures requiring assistance completed. Patient admitted, IV remains in ad5 place. Administered Medications: No medications were administered Outcome: 20:21 Decision to Hospitalize by Provider. jmm 22:23 Admitted to Med/surg accompanied by nurse, via stretcher, with oxygen, Report called to ad5 ELANA Winn 22:23 Condition: stable 22:23 Instructed on the need for admit, Demonstrated understanding of instructions. 23:05 Patient left the ED. ad5 Signatures: Dispatcher [employer] EDMS Urbano Chavez PA PA [facility] Camila Dotson RN RN Herberth Edwards RN RN [facility] Nicole Saurez, RN RN ld1 Walter Caldwell ad5
[2021-03-22] MEDS ORDERED: ACETAMINOPHEN 500 MG TAB PO PRN (20:24)
[2021-03-22] MEDS ORDERED: ONDANSETRON 4 MG/2 ML VIAL IV PRN (20:24)
[2021-03-22] MEDS ORDERED: NA CHLORIDE 0.9% 1,000 ML IV SCH (21:00)
[2021-03-22 23:26] VITALS: BMI 16.5
[2021-03-23] MEDS: ZOLPIDEM TARTRATE 5 MG TABLET PO PRN (00:07)
[2021-03-23 04:20] LABS: Absolute Lymphocytes (CBC) 1.4 K/uL (0.7-4.9); Basophils % 2.1 % (0-1.3); Lymphocytes % 11.2 % (15.3-44.8); MPV 8.4 fL (7.6-11.3); RBC Red Blood Cell Count 1.66 M/uL (4.33-5.43)
[2021-03-23 04:34] LABS: Hematocrit 19.2 % (39.6-49.0)
[2021-03-23 04:37] LABS: Potassium 4.5 mmol/L (3.5-5.1)
[2021-03-23] MEDS: D5 0.9 NS 1,000 ML IV SCH ×3 (05:13→21:22)
[2021-03-23] MEDS ORDERED: NA CHLORIDE 0.9% 250 ML ONE (06:55)
[2021-03-23 13:57] LABS: Hematocrit 24.1 % (39.6-49.0)
[2021-03-23] MEDS ORDERED: NA CHLORIDE 0.9% 250 ML IV SCH (16:00)
[2021-03-23] MEDS: MORPHINE 4 MG/ML SYR IV PRN (18:40)
[2021-03-24] MEDS: D5 0.9 NS 1,000 ML IV SCH ×3 (01:04→17:21)
[2021-03-24 07:11] LABS: Absolute Lymphocytes (CBC) 0.8 K/uL (0.7-4.9); Basophils % 2.8 % (0-1.3); Hematocrit 28.4 % (39.6-49.0); Lymphocytes % 7.3 % (15.3-44.8); MPV 8.4 fL (7.6-11.3); RBC Red Blood Cell Count 2.78 M/uL (4.33-5.43)
[2021-03-24 07:57] LABS: Anisocytosis 3+; Blood Morphology Comment NOTED (NOT SEEN); Platelet Estimate ADEQ
[2021-03-24] MEDS: MORPHINE 4 MG/ML SYR IV PRN (21:17)
[2021-03-25] MEDS: ZOLPIDEM TARTRATE 5 MG TABLET PO PRN ×2 (01:00→22:38)
[2021-03-25] MEDS: D5 0.9 NS 1,000 ML IV SCH ×3 (02:17→12:52)
--- NOTE | 2021-03-25 04:03 | HP ---
Date of Admission: 03/23/2021 Entrance Complaint: Abdominal pain, shortness of breath. History Of Present Illness: The patient has a rather complex history over the past few months when juan salazar was diagnosed with a myelofibrosis, which he has had some chemotherapy with the local oncology. He had some with intermittent lower and upper abdominal pain. No specific diagnosis made. He has had a history of compression fractures and falls. According to the family his condition has deteriorated somewhat as far as his mobility, eating and generalized function over the past few weeks. In any ev ent, the day of admission he really had a rather severe upper or mid epigastric pain, which he stated he has never had to this extent before. It is not associated with any other symptoms. When seen in the emergency room he was obviously anemic with a hemoglobin in the 6 range and he was admitted for further treatment. The patient had been placed on a patch for pain by Oncology; however, he states t he pain until he was in the emergency room was treated with IV analgesics. It was considerably more than he was accustomed. Past Medical History: As above with myelofibrosis, compression fracture, fracture of the wrist, mult iple falls and increasing anorexia with weight loss. Family History: Noncontributory. Social History: Nonsmoker and nondrinker. Physical Examination: General/Vital Signs: The patient is elderly, rather cachectic appearing, frail looking male in appar ent discomfort with stable vital signs. Head/Neck: Normocephalic. Pupils equal to light and accommodation. Fundi negative. Trachea midlin e. Thyroid not palpable ENT: Negative. Chest: Clear to P and A. Cardiovascular: PMI in midclavicular line. Heart sounds normal. Peripheral pulses present and equa l bilaterally. Abdomen: No organomegaly. Minimal tenderness to midepigastric area. No guarding, rebound, or rigid ity. Bowel sounds are hyperactive. Extremities: Moderately dehydrated. Good tone and movement bila terally. Reflexes are physiologic. Rectal: Deferred. Impression: Anemia of unknown etiology, possibly secondary to myelofibrosis. Plan: The patient will be admitted. Transfuse. Evaluation of abdominal and spinal area will be onc e again done and will be placed on IV nutrition. HR/MODL Voice ID: [id number]
--- NOTE | 2021-03-25 04:09 | HP ---
Date of Admission: 03/23/2021 Actually, the patient states he feels considerably better today. According to him and the nursing st aff, he has been eating. His hydration is improved considerably. His pain is also improved consider ably. It is possible that the pain was secondary to the lesion that was found on the CT scan. He hall s had numerous, which does not show any positive pathology. However, at this time shows a mass possi brian suspicious in the left upper quadrant and on discussion with Radiology, we felt that he could hav e a biopsy, which would give true results. Spinal situation shows multiple compression, possibly wit h pathological implications. Physical therapy was consulted to see if he can be mobilized for walkin g, to continue IV fluids and possibly discharge him tomorrow depending on the availability of the bio psy early next week. This could either be done on an inpatient or outpatient. HR/MODL Voice ID: [id number]
[2021-03-25 05:13] LABS: Absolute Lymphocytes (CBC) 0.8 K/uL (0.7-4.9); Basophils % 1.5 % (0-1.3); Hematocrit 27.1 % (39.6-49.0); Lymphocytes % 7.2 % (15.3-44.8); MPV 8.2 fL (7.6-11.3); RBC Red Blood Cell Count 2.65 M/uL (4.33-5.43)
[2021-03-25 05:23] LABS: ALT/SGPT 14 U/L (12-78); AST/SGOT 50 U/L (15-37); Albumin 2.7 g/dL (3.4-5.0); Alkaline Phosphatase 115 U/L (45-117); BUN Blood Urea Nitrogen 14 mg/dL (7-18); Bicarbonate 28 mmol/L (21-32); Bilirubin Total 0.6 mg/dL (0.2-1.0); Glucose Level 106 mg/dL (74-106); Potassium 3.7 mmol/L (3.5-5.1); Protein, Total 5.6 g/dL (6.4-8.2); Sodium Level 142 mmol/L (136-145)
[2021-03-25] MEDS: MORPHINE 4 MG/ML SYR IV PRN ×3 (07:42→21:28)
[2021-03-25] MEDS: FENTANYL 50 MCG/PATCH TD SCH (15:27)
[2021-03-25] MEDS ORDERED: BISACODYL E.C. 5 MG TAB PO ONE (19:33)
[2021-03-26 04:56] LABS: Absolute Lymphocytes (CBC) 0.9 K/uL (0.7-4.9); Basophils % 3.4 % (0-1.3); Hematocrit 25.4 % (39.6-49.0); Lymphocytes % 9.3 % (15.3-44.8); MPV 8.6 fL (7.6-11.3); RBC Red Blood Cell Count 2.48 M/uL (4.33-5.43)
[2021-03-26] MEDS ORDERED: BISACODYL 10 MG RECTAL SUPP PR ONE (09:00)
[2021-03-26] MEDS ORDERED: NA CHLORIDE 0.9% 500 ML IV ONE (11:33)
--- NOTE | 2021-03-26 17:46 | PN ---
Date of Progress Note: 03/26/2021 The patient's condition has deteriorated somewhat today both mentally and physically. His hemoglobin has dropped 1 g since his 2 units. He does complain of some shortness of breath with physical thera py mobilized, his O2 dropped. We will have him see if he qualifies for home O2. Awaiting biopsy scheduled for the next day or so. End-of-life discussion was held with his . We will co carissa to monitor his H and H. Expect his pneumatic riveter will be back tomorrow. We will discuss case with him as well. HR/MODL Voice ID: [id number] Report ID: [id number]
--- NOTE | 2021-03-26 19:37 | PN ---
Date of Progress Note: 03/25/2021 The patient states he does feel somewhat better as far as his strength is concerned, although he has not been out of bed and his hemoglobin has dropped minimally. His nutritional status is low and he s tates he has been eating much better. His hydration has improved. Discussion with Radiology is the patient will be scheduled for a biopsy under ultrasound of the lesion of the upper abdomen. He does require a moderate amount of pain control and therefore the fentanyl patch, which is will be increased. He may require pain management depending on the results of the biopsy and his home situat ion. Discussion was held with the family, otherwise Home Health is concerned and does not have this. This will probably instituted as well. We will observe him another overnight to see what his CBC d oes and his nutrition. PT was present and did mobilize him some, which he stated he could tolerate. Depending on his status for his ultrasound biopsy, his blood work and his nutrition, may be able to be discharged tomorrow. HR/MODL Voice ID: [id number] Report ID: [id number]
[2021-03-26] MEDS: ZOLPIDEM TARTRATE 5 MG TABLET PO PRN (20:26)
[2021-03-26] MEDS: MORPHINE 2 MG/ML SYR IV PRN (22:00)
[2021-03-27 04:16] LABS: Basophils % 2.8 % (0-1.3); Hematocrit 24.3 % (39.6-49.0); Lymphocytes % 9.5 % (15.3-44.8); MPV 8.5 fL (7.6-11.3); RBC Red Blood Cell Count 2.38 M/uL (4.33-5.43)
[2021-03-27 04:17] LABS: Absolute Lymphocytes (CBC) 0.9 K/uL (0.7-4.9)
--- NOTE | 2021-03-27 11:50 | PN ---
Date of Progress Note: 03/27/2021 Radiology called me this morning and felt that the risk we was significant enough that the y didn't feel comfortable doing the biopsy under ultrasound, although the issue was discussed earlier , they felt that this time possibly a surgical biopsy would be safer and therefore consultation was o btained with Dr. Lange. His H and H are stable. He did require morphine for pain control. We enedina l obviously feed him today now that he has been n.p.o. Continue to try mobilize him as blood pressur e is within normal range and await surgical evaluation. HR/MODL Voice ID: [id number] Report ID: [id number]
[2021-03-27] MEDS: MORPHINE 2 MG/ML SYR IV PRN (21:00)
[2021-03-27] MEDS: D5 0.9 NS 1,000 ML IV SCH (21:00)
[2021-03-27] MEDS: ZOLPIDEM TARTRATE 5 MG TABLET PO PRN (21:00)
[2021-03-28] MEDS: MORPHINE 2 MG/ML SYR IV PRN ×3 (00:30→21:36)
[2021-03-28 04:08] LABS: Absolute Lymphocytes (CBC) 0.8 K/uL (0.7-4.9); Basophils % 1.8 % (0-1.3); Hematocrit 24.7 % (39.6-49.0); MPV 8.6 fL (7.6-11.3); RBC Red Blood Cell Count 2.41 M/uL (4.33-5.43)
[2021-03-28 05:23] LABS: Anisocytosis 3+; Blood Morphology Comment NOTED (NOT SEEN); Macrocytosis 1+; Platelet Estimate ADEQ
[2021-03-28] MEDS: D5 0.9 NS 1,000 ML IV SCH (08:39)
[2021-03-28] MEDS: FENTANYL 50 MCG/PATCH TD SCH (08:40)
--- NOTE | 2021-03-28 19:12 | PN ---
Date of Progress Note: 03/28/2021 The patient is basically status quo, still has considerable discomfort. H and H seemed stable. Disc ussed issues with various physicians including GI, Oncology, and Surgery. He understands now the filippo n is to do a biopsy tomorrow, to scope and transfuse if his hemoglobin drops below 8. Disposition hall s been discussed once again with the family. Depending on the results of the biopsy, we will obvious ly dictate the course. HR/MODL Voice ID: [id number] Report ID: [id number]
[2021-03-28] MEDS: ZOLPIDEM TARTRATE 5 MG TABLET PO PRN (21:36)
[2021-03-29 04:19] LABS: Absolute Lymphocytes (CBC) 1.1 K/uL (0.7-4.9); Hematocrit 25.5 % (39.6-49.0); Lymphocytes % 9.2 % (15.3-44.8); MPV 8.6 fL (7.6-11.3); RBC Red Blood Cell Count 2.48 M/uL (4.33-5.43)
[2021-03-29] MEDS: MORPHINE 2 MG/ML SYR IV PRN ×2 (09:58→21:55)
[2021-03-29] MEDS ORDERED: SODIUM CHLORIDE 0.9% 10ML INJ IV PRN (17:08)
--- NOTE | 2021-03-29 18:20 | P.PN ---
Subjective Date of Service: 03/29/21 Chief Complaint: LUQ 8 cm mass between stomach and spleen, RUQ/LUQ pain, wt loss Subjective: New changes (Surgery canceled today. He still has some mild LUQ/JAY/RUQ pain on pain meds. Spoke to tertiary center -> will accept him for higher level of care with possible EUS-endoscopic ultrasound / FNA eval of unexplained new mass, not seen on 11/03 CT abdomen. Anemia thought probably due to myelofibrosis.) Physical Examination - Vital Signs Temperature: 99.1 F Blood Pressure: 119/81 Pulse: 87 Respirations: 18 Pulse Ox (%): 97 Assessment And Plan - Current Problems (Diagnosis) (1) Abdominal mass, LUQ (left upper quadrant) Current Visit: Yes Status: Acute (2) Abnormal CT of the abdomen Current Visit: Yes Status: Acute (3) Weight loss Current Visit: Yes Status: Acute (4) LUQ abdominal pain Current Visit: Yes Status: Acute (5) Epigastric abdominal pain Current Visit: Yes Status: Acute (6) RUQ abdominal pain Current Visit: Yes Status: Acute (7) Myelofibrosis Current Visit: Yes Status: Acute - Plan REC: 1) to tertiary center for higher level of care for possible EUS - endoscopic ultrasound with FNA biopsy 2) await CA19-9 3) po diet
--- NOTE | 2021-03-29 19:33 | PN ---
Date of Progress Note: 03/29/2021 After much discussion between Dr. Dias, Radiology, and Dr. Lange, it was felt that the patient s hould be transferred to endoscopic procedure for the biopsy accepting physician and in the meantime much more alert and his hemoglobin has stabilized. Due to the positi ve stool guaiac's, we will start the Protonix IV, continue on his IV fluids and hopefully the patient to be transferred as soon as possible. HR/MODL Voice ID: [id number] Report ID: [id number]
[2021-03-29] MEDS: ZOLPIDEM TARTRATE 5 MG TABLET PO PRN (21:56)
[2021-03-30 06:18] LABS: Basophils % 3.6 % (0-1.3); Hematocrit 24.6 % (39.6-49.0); Lymphocytes % 8.9 % (15.3-44.8); MPV 8.3 fL (7.6-11.3); RBC Red Blood Cell Count 2.37 M/uL (4.33-5.43)
[2021-03-30 06:29] LABS: BUN Blood Urea Nitrogen 14 mg/dL (7-18); Bicarbonate 31 mmol/L (21-32); Glucose Level 82 mg/dL (74-106); Potassium 4.1 mmol/L (3.5-5.1); Sodium Level 141 mmol/L (136-145)
[2021-03-30] MEDS: PANTOPRAZOLE 40 MG INJ IVP SCH (07:52)
[2021-03-30 08:49] LABS: Amylase 16 U/L (25-115); Lipase 57 U/L (73-393)
--- NOTE | 2021-03-30 12:43 | P.PN ---
Subjective Date of Service: 03/30/21 Chief Complaint: LUQ 8 cm mass between stomach and spleen, RUQ/LUQ pain, wt loss Subjective: No new changes (Awaiting bed at tertiary center - [facility] for possible EUS with FNA of unexplained LUQ mass between stomach and spleen.) Review of Systems 10-point ROS is otherwise unremarkable General: Weakness, Malaise Gastrointestinal: Abdominal Pain (JAY/RUQ/LUQ pain - mild with pain meds ) Physical Examination - Vital Signs Temperature: 98.6 F Blood Pressure: 123/68 Pulse: 98 Respirations: 18 Pulse Ox (%): 94 - Physical Exam General: Alert, In no apparent distress, Oriented x3, Cooperative HEENT: Atraumatic, Normocephalic, PERRLA, EOMI Neck: Supple Respiratory: Normal air movement Cardiovascular: Normal pulses Gastrointestinal: Non-distended, Tenderness, Guarding (mild) Neurological: Normal speech Assessment And Plan - Current Problems (Diagnosis) (1) Abdominal mass, LUQ (left upper quadrant) Current Visit: Yes Status: Acute (2) Abnormal CT of the abdomen Current Visit: Yes Status: Acute (3) Weight loss Current Visit: Yes Status: Acute (4) LUQ abdominal pain Current Visit: Yes Status: Acute (5) Epigastric abdominal pain Current Visit: Yes Status: Acute (6) RUQ abdominal pain Current Visit: Yes Status: Acute (7) Myelofibrosis Current Visit: Yes Status: Acute Comment: with secondary anemia - Plan REC: 1) to tertiary center for higher level of care for possible EUS - endoscopic ultrasound with FNA biopsy 2) await CA19-9 3) po diet
[2021-03-30] MEDS ORDERED: BISACODYL E.C. 5 MG TAB PO ONE ×2 (20:25→21:17)
[2021-03-30] MEDS: ZOLPIDEM TARTRATE 5 MG TABLET PO PRN (20:59)
[2021-03-30] MEDS: MORPHINE 2 MG/ML SYR IV PRN (20:59)
--- NOTE | 2021-03-31 01:15 | P.PN ---
Date of Service: 03/30/[address] Feldman. Patient has a LUQ 8 cm mass between stomach and spleen. Patient also has a RUQ/LUQ pain, along with wt loss. At this time, we are awaiting bed at tertiary center - [facility] for possible EUS with FNA of unexplained LUQ mass between stomach and spleen. Physical Examination - Vital Signs Reviewed - Physical Exam General: Alert, In no apparent distress, Oriented x3, Cooperative HEENT: Atraumatic, Normocephalic, PERRLA, EOMI Neck: Supple Respiratory: Normal air movement Cardiovascular: Normal pulses Gastrointestinal: Non-distended, Tenderness, Guarding (mild) Neurological: Normal speech Assessment And Plan - Current Problems (Diagnosis) (1) Abdominal mass, LUQ (left upper quadrant) Current Visit: Yes Status: Acute (2) Abnormal CT of the abdomen Current Visit: Yes Status: Acute (3) Weight loss Current Visit: Yes Status: Acute (4) LUQ abdominal pain Current Visit: Yes Status: Acute (5) Epigastric abdominal pain Current Visit: Yes Status: Acute (6) RUQ abdominal pain Current Visit: Yes Status: Acute (7) Myelofibrosis Current Visit: Yes Status: Acute Comment: with secondary anemia - Plan Continue with plan of care as mentioned below: 1) Plan to transfer patient to a tertiary center for higher level of care; GI in anticipating endoscopic ultrasound with FNA biopsy 2) labs pending:CA19-9 3) started on diet as tolerated
[2021-03-31 04:32] LABS: Absolute Lymphocytes (CBC) 0.9 K/uL (0.7-4.9); Basophils % 2.7 % (0-1.3); Hematocrit 24.7 % (39.6-49.0); Lymphocytes % 7.6 % (15.3-44.8); MPV 8.3 fL (7.6-11.3); RBC Red Blood Cell Count 2.39 M/uL (4.33-5.43)
[2021-03-31 08:09] LABS: ALT/SGPT 14 U/L (12-78); AST/SGOT 67 U/L (15-37); Albumin 2.4 g/dL (3.4-5.0); Alkaline Phosphatase 131 U/L (45-117); BUN Blood Urea Nitrogen 15 mg/dL (7-18); Bicarbonate 30 mmol/L (21-32); Bilirubin Total 0.5 mg/dL (0.2-1.0); Folic Acid, (Folate) 4.6 ng/mL (3.1-17.5); Glucose Level 76 mg/dL (74-106); Magnesium 1.8 mg/dL (1.8-2.4); Protein, Total 5.4 g/dL (6.4-8.2); Sodium Level 142 mmol/L (136-145)
[2021-03-31] MEDS: FENTANYL 50 MCG/PATCH TD SCH (08:19)
[2021-03-31] MEDS: PANTOPRAZOLE 40 MG INJ IVP SCH (08:19)
[2021-03-31] MEDS: HYDROMORPHONE HCL 0.5 MG/0.5 ML INJ IV PRN ×2 (12:05→20:15)
[2021-03-31] MEDS: ZOLPIDEM TARTRATE 5 MG TABLET PO PRN (20:15)
[2021-04-01 08:57] VITALS: O2SAT 93
--- NOTE | 2021-04-01 09:30 | P.PN ---
Date of Service: 03/31/21 Subjective Pain is a little worse today. Change pain medications in awaiting transfer to tertiary care facility Physical Examination - Vital Signs Reviewed - Physical Exam General: Alert, In no apparent distress, Oriented x3, Cooperative Respiratory: Normal air movement Cardiovascular: Normal pulses Gastrointestinal: Non-distended, Tenderness, Guarding (mild) Neurological: Normal speech Assessment And Plan - Current Problems (Diagnosis) (1) Abdominal mass, LUQ (left upper quadrant) Current Visit: Yes Status: Acute (2) Abnormal CT of the abdomen Current Visit: Yes Status: Acute (3) Weight loss Current Visit: Yes Status: Acute (4) LUQ abdominal pain Current Visit: Yes Status: Acute (5) Epigastric abdominal pain Current Visit: Yes Status: Acute (6) RUQ abdominal pain Current Visit: Yes Status: Acute (7) Myelofibrosis Current Visit: Yes Status: Acute Comment: with secondary anemia - Plan Continue with plan of care as mentioned below: 1) Plan to transfer patient to a tertiary center for higher level of care; GI in anticipating endoscopic ultrasound with FNA biopsy 2) labs pending:CA19-9 3) started on diet as tolerated
[2021-04-01] MEDS: HYDROMORPHONE HCL 0.5 MG/0.5 ML INJ IV PRN (09:31)
[2021-04-01] MEDS: PANTOPRAZOLE 40 MG INJ IVP SCH (09:33)
[2021-04-01 16:42] VITALS: BP 98/56; TEMP 99.3
== END 2021-04-01 18:15 | disposition short-term general hospital (02) | DRG 392 ==
LOC: ER 18:03 → ERHOLD 20:24 → 4TH 22:56 → OBSVTOIN 03-23 07:44
PROVIDERS: ADMIT Family Medicine; ATTEND Family Medicine
PROC: 30233N1 Transfusion of Nonautologous Red Blood Cells into Peripheral Vein, Percutaneous Approach (ICD-10-PCS; principal; 2021-03-23)
DX: R19.02 Left upper quadrant abdominal swelling, mass and lump (principal); S22.089A Unspecified fracture of T11-T12 vertebra, initial encounter for closed fracture; S32.029A Unspecified fracture of second lumbar vertebra, initial encounter for closed fracture; C94.40 Acute panmyelosis with myelofibrosis not having achieved remission; Z68.1 Body mass index [BMI] 19.9 or less, adult; R64 Cachexia; D64.9 Anemia, unspecified; R63.4 Abnormal weight loss; R10.13 Epigastric pain; Z20.822 Contact with and (suspected) exposure to COVID-19
CPT/HCPCS: 36415; 36430; 71045; 74177; 80048; 80053; 80076; 82150; 82274; 82607; 82746; 82947; 83540; 83690; 83735; 83880; 84484; 85014; 85018; 85025; 85044; 85610; 86301; 86850; 86900; 86901; 93005; 97110; 97112; 97116; 97161; 97530; 99215; 99285; C9113; G0378; J1170; J2270; J2405; J7030; J7040; J7042; J7050; P9016; Q9967; U0003

== ENCOUNTER 2021-04-04 16:43 | Inpatient (IN) | payer OTHER, MEDICARE ==
--- OUTSIDE RECORDS SUMMARY | 2021-04-04 16:48 | XMS REPORT | Continuity of Care Document ---
:1940 Author Organization [facility] t Address [address] [place] [address] Care Team Providers Name Role Phone Gaston DIA Primary Care Physician Lisa Ardon MD Attending Clinician Yinka DIA, L Attending Clinician Chip Diehl MD Attending Clinician Ryan Hartmann MD Attending Clinician LISA ARDON Attending Clinician Unavailable LISA ARDON Admitting Clinician Unavailable Payers Payer Name Policy Type Policy Effective Date Expiration Date Sour ce Number MEDICAREMEDICARE A [id number] 2004 DAVID Polanco [id number] 2003- 00:00:00 - Medical [facility] [place] [id number] DAVID Polanco MEDICARE MGD - Medical CAREAARP/MEDICARE Center [id number] tive for all dates Problems Condition Condition Condition Status Onset Resolution Last Treating Co mments Source Name Details Category Date Date Treatment Clinician Date Pancreatic Pancreatic Disease Active [facility] 00 Center Allergies, Adverse Reactions, Alerts Allergy Allergy Status Severity Reaction(s) Onset Inactive Treating Comm ents Source Name Type Date Date Clinician Penicill Propensi Active [facility] - adverse 00:00: Medical reaction 00 Center s Social History Social Habit Start Date Stop Date Quantity Comments Source Sex Assigned At [facility] Exposure to Not sure [facility] leo - SARS-CoV-2 (event) Medica l Center Tobacco use and 2021-04-04 2021-04-04 Never used [facility] leo - exposure 00:00:00 00:00:00 Medical Center Smoking Status Start Date Stop Date Source Never smoker [facility] edical Center Medications Ordered Filled Start Stop Current Ordering Indication Dosage Frequency Signature Comments Components Source Medication Medication Date Date Medication? Clinician (SIG) Name Name ondansetron Yes 4mg Take [address] (ZOFRAN-ODT 04-04 by mouth [facility] - ) 4 MG 15:35: every 6 Medical disintegrat 28 (six) Center ing tablet hours as needed for Nausea. midodrine Yes 5mg [id number] Take [address] [facility] (PROAMATINE 04-04 [id number] by mouth 3 [facility] - ) 5 MG 15:35: 3D (three) Medical tablet 28 times Center daily. latanoprost Yes 1[drp] QD Place [address] (XALATAN) 04-04 drop into [facility] - 0.005 % 15:35: the left Medica l ophthalmic 28 eye Center solution nightly. famotidine Yes 20mg Q.5D Take [address] (PEPCID) 20 04-04 by mouth 2 [facility] k[facility] - MG tablet 15:35: (two) Medical 28 times Center daily. esomeprazol Yes 40mg QD Take [address] e (NexIUM) 04-04 by mouth [facility] - 40 MG 15:35: daily. Medical capsule 28 Center traMADoL 2020- No 50mg Take [address] (ULTRAM) 50 04-04 by mouth 2 [facility] - mg tablet 12:16: 00:00 (two) Medica l 58 :00 times Center daily as needed for Pain. zolpidem 2020- No 5mg Take [address] [facility] (AMBIEN) 5 04-04 by mouth [facility] - MG tablet 12:16: 00:00 every Medica l 58 :00 night as Center needed for Insomnia. fentaNYL 2020- No 1{patch Place [address] (DURAGESIC) -04-04 } patch onto [facility] - 25 mcg/hr 12:16: 00:00 the skin Med ical patch 58 :00 every Center third day. fentaNYL Yes 1{patch Place [address] [facility] (DURAGESIC) 04-04 } patch onto [facility] - 50 mcg/hr 00:00: the skin Medi tonia patch 00 every Center third day. Max Daily Amount: 1 patch acetaminoph Yes 650mg Take [address] [facility] en 6-22 tablets [facility] - (TYLENOL) 00:00: (650 mg Medic al 325 MG 00 total) by Center tablet mouth every 6 (six) hours as needed for Pain or Fever. HYDROmorpho Yes 2mg Take [address] [facility] [address] ne - tablet (2 [facility] - (DILAUDID) 00:00: mg total) Me dical 2 MG tablet 00 by mouth Cent er every 6 (six) hours as needed for Pain. Max Daily Amount: 8 mg polyethylen Yes 17g Take [address] e glycol 6-22 by mouth [facility] - (GLYCOLAX) 00:00: daily as Med ical 17 gram 00 needed Center packet (constipat ion). senna Yes 8.6mg QD Take [address] (SENOKOT) 6-22 tablet [facility] - 8.6 mg 00:00: (8.6 mg Medical tablet 00 total) by Center mouth nightly. Vital Signs Vital Name Observation Time Observation Value Comments Source Systolic blood 2021-04-04 12:39:00 106 mm[Hg] [facility] pressure [facility] Diastolic blood 2021-04-04 12:39:00 55 mm[Hg] [facility] S t [facility] pressure [facility] Heart rate 2021-04-04 12:39:00 97 /min [facility] - [facility] Body temperature 2021-04-04 12:39:00 36 Angela [facility] Respiratory rate 2021-04-04 12:39:00 18 /min [facility] Oxygen saturation in 2021-04-04 12:39:00 96 /min [facility] - Arterial blood by Medical Ce nter Pulse oximetry Body height 2021-04-01 20:00:00 170.2 cm [facility] Body weight 2021-04-01 20:00:00 54.795 kg [facility] BMI 2021-04-01 20:00:00 18.92 kg/m2 [facility] Procedures Procedure Date / Time Performed Performing Clinician Sour e CBC W/PLT COUNT & AUTO 2021-04-04 03:47:00 Landon Ardon [facility] METABOLIC 2021-04-04 03:47:[address] [facility] (CELLAVISION MANUAL DIFF) 2021-04-04 03:47:00 Landon Ardon [facility] Candie darby [facility] REPORT OF PROCEDURE - 2021-04-03 16:33:53 Donnell Honecyutt [facility] ENDOSCOPY [facility] UPPER ENDOSCOPY,FNA 2021-04-03 15:51:[address] [facility] W/ULTRASOUND [facility] CBC W/PLT COUNT & AUTO 2021-04-03 05:13:00 Landon Ardon [facility] METABOLIC 2021-04-03 05:13:00 Landon rAdon [facility] (CELLAVISION MANUAL DIFF) 2021-04-03 05:13:00 Landon Ardon [facility] METABOLIC 2021-04-01 23:00:[address] [facility] CBC W/PLT COUNT & AUTO 2021-04-01 22:26:[address] [facility] S [facility] (CELLAVISION MANUAL DIFF) 2021-04-01 22:26:00 Sanjuana Weber I [facility] Plan of Care Planned Activity Planned Date Details Comments Source Future Scheduled 2021-06-14 INFLUENZA VACCINE [facility] - Test 00:00:00 (Season Ended) [code = [facility] INFLUENZA VACCINE (Season Ended)] Future Scheduled 2020-10-[address] [facility] Test 00:00:00 (12+) [code = Medical Center DEPRESSION SCREENING (12+)] Future Scheduled 2005-08-[address] [facility] - Test 00:00:00 WELLNESS (YEAR 2 or Medical Center FIRST YEAR if no IPPE) [code = MEDICARE ANNUAL WELLNESS (YEAR 2 or FIRST YEAR if no IPPE)] Future Scheduled 2004 PNEUMOCOCCAL 65+ YRS [facility] - Test 00:00:00 (1 of 1 - Medical Center [id number] PCV13) [code = PNEUMOCOCCAL 65+ YRS (1 of 1 - [id number] PCV13)] Future Scheduled 1989 SHINGLES VACCINES ([address] [facility] - Test 00:00:00 of 2) [code = SHINGLES Medic al Center VACCINES (1 of 2)] Future Scheduled 1958 DTAP/TDAP/TD VACCINES [facility] - Test 00:00:00 (1 - Tdap) [code = Medical C enter DTAP/TDAP/TD VACCINES (1 - Tdap)] Medication 2021-04-05 enoxaparin (LOVENOX) [facility] - 00:00:00 40 mg/0.4 mL Syrg Medical Ce nter [code = 206222] Encounters Start End Encounter Admission Attending Care Care Encounter Source Date/Time Date/Time Type Type Clinicians Facility Department ID 2020-12-19 2020-12-19 Outpatient [facility] MED [address] [facility] 09:29:00 09:29:00 Results Test Description Test Time Test Comments Results Result Comments Source CBC with platelet count + automated diff 2021-04-04 07:53:00 Test Item Value Reference Range Interpretation Comme nts WBC (test code = 6690-2) 13.9 See_Comment H [A utomated message] The system which generated this result transmitted ref erence range: 3.5 - 10.5 K/L. T he reference range was not u sed to interpret this result as normal/abnormal. RBC (test code = 789-8) 2.27 See_Comment L [Au tomated message] The system which generated this result transmitted ref erence range: 4.63 - 6.08 M/ L. The reference range was not u sed to interpret this result as normal/abnormal. MCHC (test code = 786-4) 32.9 See_Comment L [A utomated message] The system which generated this result transmitted ref erence range: 32.3 - 36.5 GM/ DL. The reference range was not u sed to interpret this result as normal/abnormal. Hematocrit (test code = 24.6 % 40.1-51 L 4544-3) MCV (test code = 787-2) 108.4 fL 79-92.2 H MCH (test code = 785-6) 35.7 pg 25.7-32.2 H RDW (test code = 788-0) Unab le to report due to abnormal RBC population distribution. Platelets (test code = 777-3) 242 See_Comment [Automated message] The system which generated this result transmitted ref erence range: 150 - 450 K/CU MM. The reference range was not u sed to interpret this result as normal/abnormal. MPV (test code = 98425-8) 10.2 fL 9.4-12.4 nRBC (test code = 413) 0 See_Comment [Aut omated message] The system which generated this result transmitted ref erence range: 0 - 0 /100 WBC. The reference range was not used to interpret this result as lee l/abnormal. Lab Interpretation (test code Abnormal = 90735-9) [facility] [id number] 07:53:00 Test Item Value Reference Range Interpretation Comments % Neutros (test code = 50 % 2816) % Lymphs (test code = 6 % 2817) % Monos (test code = 3 % 2818) % Eos (test code = 8 % 2819) % Baso (test code = 1 % 2820) % Metamyelo (test code 4 % 0-0 H = 2821) % Myelo (test code = 13 % 0-0 H 2822) % Promyelo (test code = 3 % 0-0 H 2825) % Bands (test code = 12 % 0-10 H 2826) # Neutros (test code = 6.95 K/ul 1.78-5.38 H 2830) # Lymphs (test code = 0.83 K/ul 1.32-3.57 L 2831) # Monos (test code = 0.42 K/uL 0.3-0.82 2832) # Eos (test code = 1.11 K/uL 0.04-0.54 H 2834) # Baso (test code = 0.14 K/uL 0.01-0.08 H 2835) # Metamyelo (test code 0.56 K/uL 0-0 H = 2836) # Myelo (test code = 1.81 K/uL 0-0 H 2837) # Promyelo (test code = 0.42 K/uL 0-0 H 2838) # Bands (test code = 1.67 K/uL 0-0.8 H 2840) Total Counted (test 100 code = 1351) WBC Morphology (test Normal code = 487) Platelet Morphology Normal (test code = 486) Anisocytosis (test code 1+ few = 961) Macrocytes (test code = 1+ few 964) Poikilocytes (test code 1+ few = 966) Elliptocytes (test code 1+ few = 962) Ovalocytes (test code = 1+ few 477) Artifact (test code = Present 3432) Platelet Conc (test Adequate code = 3438) DEDRICK (test code = DEDRICK) Paper Sales Representative ID - [id number] ID - Bridgette Radha comments: Slide comments: Lab Interpretation Abnormal (test code = 19223-2) [facility] W/PLT COUNT & AUTO [id number] 07:53:00 Test Item Value Reference Range Interpretation Comments WHITE BLOOD CELL COUNT 13.9 K/ L 3.5-10.5 H (BEAKER) (test code = 775) RED BLOOD CELL COUNT 2.27 M/ L 4.63-6.08 L (BEAKER) (test code = 761) HEMOGLOBIN (BEAKER) 8.1 GM/DL 13.7-17.5 L (test code = 410) HEMATOCRIT (BEAKER) 24.6 % 40.1-51.0 L (test code = 411) MEAN CORPUSCULAR 108.4 fL 79.0-92.2 H VOLUME (BEAKER) (test code = 753) MEAN CORPUSCULAR 35.7 pg 25.7-32.2 H HEMOGLOBIN (BEAKER) (test code = 751) MEAN CORPUSCULAR 32.9 GM/DL 32.3-36.5 HEMOGLOBIN CONC (BEAKER) (test code = 752) RED CELL DISTRIBUTION Unable to report due WIDTH (BEAKER) (test to [facility] RBC code = 412) population distribution. PLATELET COUNT 242 K/CU MM 150-450 (BEAKER) (test code = 756) MEAN PLATELET VOLUME 10.2 fL 9.4-12.4 (BEAKER) (test code = 754) NUCLEATED RED BLOOD 0 /100 WBC 0-0 CELLS (BEAKER) (test code = 413) (CELLAVISION MANUAL DIFF)2021-04-04 07:53:00 Test Item Value Reference Range Interpretation Comments NEUTROPHILS - REL 50 % (CELLAVISION)(BEAKER) (test code = 2816) LYMPHOCYTES - REL 6 % (CELLAVISION)(BEAKER) (test code = 2817) MONOCYTES - REL 3 % (CELLAVISION)(BEAKER) (test code = 2818) EOSINOPHILS - REL 8 % (CELLAVISION)(BEAKER) (test code = 2819) BASOPHILS - REL 1 % (CELLAVISION)(BEAKER) (test code = 2820) METAMYELOCYTES - REL 4 % 0-0 H (CELLAVISION)(BEAKER) (test code = 2821) MYELOCYTES - REL 13 % 0-0 H (CELLAVISION)(BEAKER) (test code = 2822) PROMYELOCYTES - REL 3 % 0-0 H (CELLAVSION)(BEAKER) (test code = 2825) BANDS - REL (CELLAVISION)(BEAKER) 12 % 0-10 H (test code = 2826) NEUTROPHILS - ABS 6.95 K/ul 1.78-5.38 H (CELLAVISION)(BEAKER) (test code = 2830) LYMPHOCYTES - ABS 0.83 K/ul 1.32-3.57 L (CELLAVISION)(BEAKER) (test code = 2831) MONOCYTES - ABS 0.42 K/uL 0.30-0.82 (CELLAVISION)(BEAKER) (test code = 2832) EOSINOPHILS - ABS 1.11 K/uL 0.04-0.54 H (CELLAVISION)(BEAKER) (test code = 2834) BASOPHILS - ABS 0.14 K/uL 0.01-0.08 H (CELLAVISION)(BEAKER) (test code = 2835) METAMYELOCYTES - ABS 0.56 K/uL 0.00-0.00 H (CELLAVISION)(BEAKER) (test code = 2836) MYELOCYTES-ABS 1.81 K/uL 0.00-0.00 H (CELLAVISION)(BEAKER) (test code = 2837) PROMYELOCYTES - ABS 0.42 K/uL 0.00-0.00 H (CELLAVISION)(BEAKER) (test code = 2838) BANDS - ABS (CELLAVISION)(BEAKER) 1.67 K/uL 0.00-0.80 H (test code = 2840) TOTAL COUNTED (BEAKER) (test code = 100 1351) WBC MORPHOLOGY (BEAKER) (test code Normal = 487) PLT MORPHOLOGY (BEAKER) (test code Normal = 486) ANISOCYTOSIS (BEAKER) (test code = 1+ few 961) MACROCYTES (BEAKER) (test code = 1+ few 964) POIKILOCYTES (BEAKER) (test code = 1+ few 966) ELLIPTOCYTES (BEAKER) (test code = 1+ few 962) OVALOCYTES (BEAKER) (test code = 1+ few 477) ARTIFACT (CELLAVISION)(BEAKER) Present (test code = 3432) PLATELET CONCENTRATION Adequate (CELLAVISION)(BEAKER) (test code = 3438) Paper Sales Representative ID - [id number] ID - Bridgette Garcia comments: Slide comments: Comprehensive metabolic [id number] 04:44:00 Test Item Value Reference Range Interpretation Comments Protein, Total (test 5.3 See_Comment L [Autom ated code = 2885-2) message] The system which generated this result transmit génesis reference range : 6.0 - 8.3 gm/dL . The reference range was not u sed to interpret th is result as normal/abnormal . Albumin (test code = 2.9 g/dL 3.5-5 L 36069-2) Alkaline Phosphatase 131 U/L 40-150 (test code = 6768-6) Total Bilirubin (test 0.6 mg/dL 0.2-1.2 code = 1975-2) Sodium (test code = 141 meq/L 331-296 2476-2) Potassium (test code 4.4 meq/L 3.5-5.1 = 2823-3) Chloride (test code = 99 meq/L 98-107 5-0) CO2 (test code = 27 meq/L 22-29 8-9) BUN (test code = 22 mg/dL 7-21 H 3094-0) Creatinine (test code 0.83 mg/dL 0.57-1.25 = 2160-0) Glucose (test code = 60 mg/dL 70-105 L 2345-7) Calcium (test code = 9.8 mg/dL 8.4-10.2 92761-6) AST (test code = 34 U/L 5-34 1920-8) ALT (test code = 13 U/L 6-55 1742-6) EGFR (test code = 89 mL/min/1.73 [place] [address]-0) NOT ACCURATE CREATININE CLEARANCE IN PREDICTING GLOMERULAR FILTRATION RATE . ESTIMATED GFR I S NOT APPLICABLE FOR DIALYSIS PATIEN TS. DEDRICK (test code = DEDRICK) Paper Sales Representative ID - NABIL M Lab Interpretation Abnormal (test code = 17393-4) [facility] [id number] 04:44:00 Test Item Value Reference Range Interpretation Comments TOTAL PROTEIN 5.3 gm/dL 6.0-8.3 L (BEAKER) (test code = 770) ALBUMIN (BEAKER) 2.9 g/dL 3.5-5.0 L (test code = 1145) ALKALINE PHOSPHATASE 131 U/L 40-150 (BEAKER) (test code = 346) BILIRUBIN TOTAL 0.6 mg/dL 0.2-1.2 (BEAKER) (test code = 377) SODIUM (BEAKER) (test 141 meq/L 136-145 code = 381) POTASSIUM (BEAKER) 4.4 meq/L 3.5-5.1 (test code = 379) CHLORIDE (BEAKER) 99 meq/L 98-107 (test code = 382) CO2 (BEAKER) (test 27 meq/L -29 code = 355) BLOOD UREA NITROGEN 22 mg/dL 7-21 H (BEAKER) (test code = 354) CREATININE (BEAKER) 0.83 mg/dL 0.57-1.25 (test code = 358) GLUCOSE RANDOM 60 mg/dL 70-105 L (BEAKER) (test code = 652) CALCIUM (BEAKER) 9.8 mg/dL 8.4-10.2 (test code = 697) AST (SGOT) (BEAKER) 34 U/L 5-34 (test code = 353) ALT (SGPT) (BEAKER) 13 U/L 6-55 (test code = 347) EGFR (BEAKER) (test 89 mL/min/1.73 ESTIMA GÉNESIS GFR IS code = 1092) sq m NOT ACCURATE CREATININE CLEARANCE IN PREDICTING GLOMERULAR FILTRATION RATE . ESTIMATED GFR I S NOT APPLICABLE FOR DIALYSIS PATIEN TS. Paper Sales Representative ID - NABLI [facility] W/PLT COUNT & AUTO [id number] 10:27:00 Test Item Value Reference Range Interpretation Comments WHITE BLOOD CELL COUNT (BEAKER) 12.4 K/ L 3.5-10.5 H (test code = 775) RED BLOOD CELL COUNT (BEAKER) 2.34 M/ L 4.63-6.08 L (test code = 761) HEMOGLOBIN (BEAKER) (test code = 8.1 GM/DL 13.7-17.5 L 410) HEMATOCRIT (BEAKER) (test code = 25.3 % 40.1-51.0 L 411) MEAN CORPUSCULAR VOLUME (BEAKER) 108.1 fL 79.0-92.2 H (test code = 753) MEAN CORPUSCULAR HEMOGLOBIN 34.6 pg 25.7-32.2 H (BEAKER) (test code = 751) MEAN CORPUSCULAR HEMOGLOBIN CONC 32.0 GM/DL 32.3-36.5 L (BEAKER) (test code = 752) RED CELL DISTRIBUTION WIDTH 26.3 % 11.6-14.4 H (BEAKER) (test code = 412) PLATELET COUNT (BEAKER) (test 193 K/CU MM 150-450 code = 756) MEAN PLATELET VOLUME (BEAKER) 9.8 fL 9.4-12.4 (test code = 754) NUCLEATED RED BLOOD CELLS 0 /100 WBC 0-0 (BEAKER) (test code = 413) (CELLAVISION MANUAL DIFF)2021-04-03 10:27:00 Test Item Value Reference Range Interpretation Comments NEUTROPHILS - REL 55 % (CELLAVISION)(BEAKER) (test code = 2816) LYMPHOCYTES - REL 7 % (CELLAVISION)(BEAKER) (test code = 2817) MONOCYTES - REL 2 % (CELLAVISION)(BEAKER) (test code = 2818) EOSINOPHILS - REL 8 % (CELLAVISION)(BEAKER) (test code = 2819) BASOPHILS - REL 2 % (CELLAVISION)(BEAKER) (test code = 2820) MYELOCYTES - REL 9 % 0-0 H (CELLAVISION)(BEAKER) (test code = 2822) PROMYELOCYTES - REL 1 % 0-0 H (CELLAVSION)(BEAKER) (test code = 2825) BANDS - REL (CELLAVISION)(BEAKER) 16 % 0-10 H (test code = 2826) NEUTROPHILS - ABS 6.82 K/ul 1.78-5.38 H (CELLAVISION)(BEAKER) (test code = 2830) LYMPHOCYTES - ABS 0.87 K/ul 1.32-3.57 L (CELLAVISION)(BEAKER) (test code = 2831) MONOCYTES - ABS 0.25 K/uL 0.30-0.82 L (CELLAVISION)(BEAKER) (test code = 2832) EOSINOPHILS - ABS 0.99 K/uL 0.04-0.54 H (CELLAVISION)(BEAKER) (test code = 2834) BASOPHILS - ABS 0.25 K/uL 0.01-0.08 H (CELLAVISION)(BEAKER) (test code = 2835) MYELOCYTES-ABS 1.12 K/uL 0.00-0.00 H (CELLAVISION)(BEAKER) (test code = 2837) PROMYELOCYTES - ABS 0.12 K/uL 0.00-0.00 H (CELLAVISION)(BEAKER) (test code = 2838) BANDS - ABS (CELLAVISION)(BEAKER) 1.98 K/uL 0.00-0.80 H (test code = 2840) TOTAL COUNTED (BEAKER) (test code = 100 1351) SMUDGE CELLS (BEAKER) (test code = Present 1371) GIANT PLATELETS (BEAKER) (test code Present = 313) ANISOCYTOSIS (BEAKER) (test code = 1+ few 961) MICROCYTES (BEAKER) (test code = 1+ few 965) MACROCYTES (BEAKER) (test code = 1+ few 964) ARTIFACT (CELLAVISION)(BEAKER) Present (test code = 3432) PLATELET CONCENTRATION Adequate (CELLAVISION)(BEAKER) (test code = 3438) Paper Sales Representative ID - Wesley Fernandes comments: Slide comments:COMPREHENSIVE METABOLIC [id number] 06:18:00 Test Item Value Reference Range Interpretation Comments TOTAL PROTEIN 5.4 gm/dL 6.0-8.3 L (BEAKER) (test code = 770) ALBUMIN (BEAKER) 2.9 g/dL 3.5-5.0 L (test code = 1145) ALKALINE PHOSPHATASE 136 U/L 40-150 (BEAKER) (test code = 346) BILIRUBIN TOTAL 0.6 mg/dL 0.2-1.2 (BEAKER) (test code = 377) SODIUM (BEAKER) (test 140 meq/L 136-145 code = 381) POTASSIUM (BEAKER) 4.3 meq/L 3.5-5.1 (test code = 379) CHLORIDE (BEAKER) 98 meq/L 98-107 (test code = 382) CO2 (BEAKER) (test 30 meq/L 22-29 H code = 355) BLOOD UREA NITROGEN 16 mg/dL 7-21 (BEAKER) (test code = 354) CREATININE (BEAKER) 0.72 mg/dL 0.57-1.25 (test code = 358) GLUCOSE RANDOM 70 mg/dL 70-105 (BEAKER) (test code = 652) CALCIUM (BEAKER) 9.6 mg/dL 8.4-10.2 (test code = 697) AST (SGOT) (BEAKER) 35 U/L 5-34 H (test code = 353) ALT (SGPT) (BEAKER) 12 U/L 6-55 (test code = 347) EGFR (BEAKER) (test 105 ESTIMATE D GFR IS code = 1092) mL/min/1.73 sq NOT ACCURA TE m CREATININE CLEARANCE IN PREDICTING GLOMERULAR FILTRATION RATE . ESTIMATED GFR I S NOT APPLICABLE FOR DIALYSIS PATIEN TS. Paper Sales Representative ID - NABIL MCOMPREHENSIVE METABOLIC [id number] 23:37:00 Test Item Value Reference Range Interpretation Comments TOTAL PROTEIN 5.5 gm/dL 6.0-8.3 L (BEAKER) (test code = 770) ALBUMIN (BEAKER) 3.0 g/dL 3.5-5.0 L (test code = 1145) ALKALINE PHOSPHATASE 146 U/L 40-150 (BEAKER) (test code = 346) BILIRUBIN TOTAL 0.7 mg/dL 0.2-1.2 (BEAKER) (test code = 377) SODIUM (BEAKER) (test 137 meq/L 136-145 code = 381) POTASSIUM (BEAKER) 4.5 meq/L 3.5-5.1 (test code = 379) CHLORIDE (BEAKER) 98 meq/L 98-107 (test code = 382) CO2 (BEAKER) (test 24 meq/L 22-29 code = 355) BLOOD UREA NITROGEN 19 mg/dL 7-21 (BEAKER) (test code = 354) CREATININE (BEAKER) 0.84 mg/dL 0.57-1.25 (test code = 358) GLUCOSE RANDOM 88 mg/dL 70-105 (BEAKER) (test code = 652) CALCIUM (BEAKER) 9.3 mg/dL 8.4-10.2 (test code = 697) AST (SGOT) (BEAKER) 32 U/L 5-34 (test code = 353) ALT (SGPT) (BEAKER) 11 U/L 6-55 (test code = 347) EGFR (BEAKER) (test 88 mL/min/1.73 ESTIMA GÉNESIS GFR IS code = 1092) sq m NOT ACCURATE CREATININE CLEARANCE IN PREDICTING GLOMERULAR FILTRATION RATE . ESTIMATED GFR I S NOT APPLICABLE FOR DIALYSIS PATIEN TS. Paper Sales Representative ID - DB(CELLAVISION MANUAL DIFF)2021-04-01 23:15:00 Test Item Value Reference Range Interpretation Comments NEUTROPHILS - REL 54 % (CELLAVISION)(BEAKER) (test code = 2816) LYMPHOCYTES - REL 5 % (CELLAVISION)(BEAKER) (test code = 2817) MONOCYTES - REL 2 % (CELLAVISION)(BEAKER) (test code = 2818) EOSINOPHILS - REL 7 % (CELLAVISION)(BEAKER) (test code = 2819) BASOPHILS - REL 4 % (CELLAVISION)(BEAKER) (test code = 2820) METAMYELOCYTES - REL 9 % 0-0 H (CELLAVISION)(BEAKER) (test code = 2821) MYELOCYTES - REL 14 % 0-0 H (CELLAVISION)(BEAKER) (test code = 2822) PROMYELOCYTES - REL 1 % 0-0 H (CELLAVSION)(BEAKER) (test code = 2825) BANDS - REL (CELLAVISION)(BEAKER) 5 % 0-10 (test code = 2826) NEUTROPHILS - ABS 7.78 K/ul 1.78-5.38 H (CELLAVISION)(BEAKER) (test code = 2830) LYMPHOCYTES - ABS 0.72 K/ul 1.32-3.57 L (CELLAVISION)(BEAKER) (test code = 2831) MONOCYTES - ABS 0.29 K/uL 0.30-0.82 L (CELLAVISION)(BEAKER) (test code = 2832) EOSINOPHILS - ABS 1.01 K/uL 0.04-0.54 H (CELLAVISION)(BEAKER) (test code = 2834) BASOPHILS - ABS 0.58 K/uL 0.01-0.08 H (CELLAVISION)(BEAKER) (test code = 2835) METAMYELOCYTES - ABS 1.30 K/uL 0.00-0.00 H (CELLAVISION)(BEAKER) (test code = 2836) MYELOCYTES-ABS 2.02 K/uL 0.00-0.00 H (CELLAVISION)(BEAKER) (test code = 2837) PROMYELOCYTES - ABS 0.14 K/uL 0.00-0.00 H (CELLAVISION)(BEAKER) (test code = 2838) BANDS - ABS (CELLAVISION)(BEAKER) 0.72 K/uL 0.00-0.80 (test code = 2840) TOTAL COUNTED (BEAKER) (test code 100 = 1351) GIANT PLATELETS (BEAKER) (test Present code = 313) VACUOLATED NEUTROPHILS (BEAKER) Present (test code = 483) ANISOCYTOSIS (BEAKER) (test code 2+ moderate = 961) MACROCYTES (BEAKER) (test code = 1+ few 964) POIKILOCYTES (BEAKER) (test code 1+ few = 966) ELLIPTOCYTES (BEAKER) (test code 1+ few = 962) TEAR DROP CELLS (BEAKER) (test 1+ few code = 481) ARTIFACT (CELLAVISION)(BEAKER) Present (test code = 3432) PLATELET CONCENTRATION Adequate (CELLAVISION)(BEAKER) (test code = 3438) Paper Sales Representative ID - Bebe comments: Slide comments:CBC W/PLT COUNT & AUTO [id number] 22:40:00 Test Item Value Reference Range Interpretation Comments WHITE BLOOD CELL COUNT 14.4 K/ L 3.5-10.5 H (BEAKER) (test code = 775) RED BLOOD CELL COUNT 2.38 M/ L 4.63-6.08 L (BEAKER) (test code = 761) HEMOGLOBIN (BEAKER) 8.3 GM/DL 13.7-17.5 L (test code = 410) HEMATOCRIT (BEAKER) 25.4 % 40.1-51.0 L (test code = 411) MEAN CORPUSCULAR 106.7 fL 79.0-92.2 H VOLUME (BEAKER) (test code = 753) MEAN CORPUSCULAR 34.9 pg 25.7-32.2 H HEMOGLOBIN (BEAKER) (test code = 751) MEAN CORPUSCULAR 32.7 GM/DL 32.3-36.5 HEMOGLOBIN CONC (BEAKER) (test code = 752) RED CELL DISTRIBUTION Unable to report due WIDTH (BEAKER) (test to [facility] RBC code = 412) population distribution. PLATELET COUNT 208 K/CU MM 150-450 (BEAKER) (test code = 756) MEAN PLATELET VOLUME 9.9 fL 9.4-12.4 (BEAKER) (test code = 754) NUCLEATED RED BLOOD 0 /100 WBC 0-0 CELLS (BEAKER) (test code = 413) Dimorphic red cell population.
[2021-04-04 17:22] VITALS: BMI 18.8
[2021-04-04] MEDS: FENTANYL 50 MCG/PATCH TD SCH (18:00)
[2021-04-04] MEDS: ENOXAPARIN 40 MG/0.4 ML SQ SCH (18:00)
[2021-04-04] MEDS ORDERED: ONDANSETRON 4 MG (ODT) TAB PO PRN (18:02)
[2021-04-04 18:49] LABS: Absolute Lymphocytes (CBC) 1.1 K/uL (0.7-4.9); Basophils % 1.2 % (0-1.3); Hematocrit 22.3 % (39.6-49.0); Lymphocytes % 7.4 % (15.3-44.8); MPV 7.9 fL (7.6-11.3); RBC Red Blood Cell Count 2.18 M/uL (4.33-5.43)
[2021-04-04 18:50] LABS: Urine Appearance CLEAR (Clear); Urine Blood NEGATIVE (Negative); Urine Color YELLOW (Yellow); Urine Glucose NEGATIVE (Negative); Urine Protein NEGATIVE (Negative); Urine Specific Gravity 1.025 (1.005-1.030); Urine Urobilinogen 0.2 mg/dL (0.2-1.0)
[2021-04-04 18:54] LABS: Urine Bilirubin 1+ (Negative); Urine Microscopic Reflex NO UMIC
[2021-04-04 18:57] LABS: BUN Blood Urea Nitrogen 23 mg/dL (7-18); Bicarbonate 27 mmol/L (21-32); Glucose Level 86 mg/dL (74-106); Potassium 4.1 mmol/L (3.5-5.1); Sodium Level 142 mmol/L (136-145)
[2021-04-04] MEDS: HYDROMORPHONE ORAL 2 MG TAB PO PRN (20:14)
[2021-04-04] MEDS: MIDODRINE HCL 5 MG TABLET PO SCH (20:15)
[2021-04-04] MEDS: FAMOTIDINE 20 MG TAB PO SCH (20:15)
[2021-04-04 20:27] LABS: Anisocytosis 2+; Blood Morphology Comment NOTED (NOT SEEN); Platelet Estimate ADEQ
[2021-04-04] MEDS: EYE OPTH SCH (20:27)
[2021-04-04] MEDS: LATANOPROST 0.005% OPTH SCH (20:27)
[2021-04-05] MEDS: MIDODRINE HCL 5 MG TABLET PO SCH ×3 (08:24→19:56)
[2021-04-05] MEDS: ENOXAPARIN 40 MG/0.4 ML SQ SCH (08:24)
[2021-04-05] MEDS: FAMOTIDINE 20 MG TAB PO SCH ×2 (08:24→19:56)
[2021-04-05] MEDS: PANTOPRAZOLE 40MG TABLET PO SCH (08:24)
[2021-04-05] MEDS: POLYETHYL GLY 3350 17 GM/DOSE PO SCH (08:24)
[2021-04-05] MEDS: HYDROMORPHONE ORAL 2 MG TAB PO PRN ×2 (08:38→19:56)
[2021-04-05] MEDS: EYE OPTH SCH (19:57)
[2021-04-05] MEDS: LATANOPROST 0.005% OPTH SCH (19:57)
--- NOTE | 2021-04-05 23:23 | PN ---
Date of Progress Note: 04/05/2021 The patient is basically status quo. Sort Line Worker have been involved for his placement. There is concern awaiting the final diagnosis, which according to the people in [place] should be back someti me tomorrow. He has fair intake and output. His hemoglobin is 7.6 and will repeat in a.m. and possi brian transfuse depending on the results. Discussion was held with , who is power of medical attor blaise in regard to hospice at this time, for the 3-week status at the [facility]. The pain control w as good, seems comfortable. Depending on the results of the biopsy, which most than likely will be p ancreatic CA. Disposition will be made. HR/MODL Voice ID: [id number] Report ID: [id number]
[2021-04-06 05:48] LABS: Absolute Lymphocytes (CBC) 1.1 K/uL (0.7-4.9); Hematocrit 22.2 % (39.6-49.0); Lymphocytes % 7.8 % (15.3-44.8); RBC Red Blood Cell Count 2.13 M/uL (4.33-5.43)
[2021-04-06 06:11] LABS: BUN Blood Urea Nitrogen 20 mg/dL (7-18); Bicarbonate 31 mmol/L (21-32); Glucose Level 62 mg/dL (74-106); Potassium 4.2 mmol/L (3.5-5.1); Sodium Level 142 mmol/L (136-145)
[2021-04-06] MEDS: PANTOPRAZOLE 40MG TABLET PO SCH (08:21)
[2021-04-06] MEDS: ENOXAPARIN 40 MG/0.4 ML SQ SCH (08:21)
[2021-04-06] MEDS: POLYETHYL GLY 3350 17 GM/DOSE PO SCH (08:21)
[2021-04-06] MEDS: MIDODRINE HCL 5 MG TABLET PO SCH ×3 (08:21→21:42)
[2021-04-06] MEDS: FAMOTIDINE 20 MG TAB PO SCH ×2 (08:21→21:41)
[2021-04-06] MEDS: HYDROMORPHONE ORAL 2 MG TAB PO PRN (08:38)
[2021-04-06 09:10] LABS: Anisocytosis 2+; Blood Morphology Comment NOTED (NOT SEEN); Macrocytosis 1+; Platelet Estimate ADEQ; Rouleau SLIGHT
--- NOTE | 2021-04-06 19:59 | PN ---
Date of Progress Note: 04/06/2021 The patient's H and H continues to drop with now less than 7.5, which we feel is a reasonable cutoff. We will therefore give him 1 unit of blood. The biopsy report according to the [place] office will not be back awaiting insurance clearance for placement. HR/MODL Voice ID: [id number] Report ID: [id number]
[2021-04-06] MEDS: EYE OPTH SCH (21:00)
[2021-04-06] MEDS: LATANOPROST 0.005% OPTH SCH (21:00)
[2021-04-07 06:04] LABS: Absolute Lymphocytes (CBC) 1.1 K/uL (0.7-4.9); Basophils % 1.8 % (0-1.3); Hematocrit 25.4 % (39.6-49.0); Lymphocytes % 7.9 % (15.3-44.8); RBC Red Blood Cell Count 2.66 M/uL (4.33-5.43)
[2021-04-07 06:16] LABS: Potassium 4.3 mmol/L (3.5-5.1)
[2021-04-07] MEDS: ENOXAPARIN 40 MG/0.4 ML SQ SCH (08:46)
[2021-04-07] MEDS: FAMOTIDINE 20 MG TAB PO SCH (08:47)
[2021-04-07] MEDS: MIDODRINE HCL 5 MG TABLET PO SCH ×2 (08:47→14:03)
[2021-04-07] MEDS: POLYETHYL GLY 3350 17 GM/DOSE PO SCH ×2 (08:47→08:51)
[2021-04-07] MEDS: FENTANYL 50 MCG/PATCH TD SCH (08:47)
[2021-04-07] MEDS: PANTOPRAZOLE 40MG TABLET PO SCH (08:47)
[2021-04-07 13:18] LABS: Anisocytosis 2+; Blood Morphology Comment NOTED (NOT SEEN); Platelet Estimate ADEQ
[2021-04-07 16:28] VITALS: BP 91/63; TEMP 97.7
[2021-04-07 17:18] VITALS: O2SAT 91
--- NOTE | 2021-04-07 18:40 | PN ---
Date of Progress Note: 04/07/2021 The patient has been accepted at [facility]. He will be discharged this afternoon. He actually has mobilized fairly well. After receiving his unit of blood, his hemoglobin is over 8. His pain h as been controlled with patch alone. This was changed today to fentanyl 50. He has not required Dil audid since his yesterday. However, he will be discharged to the 50 patch q.72 hours and 2 mg Dilaud id q.6h p.r.n. The remainder of his medication will be continued and depending on the results of the path report, which we should get sometime next week, further disposition may be made. HR/MODL Voice ID: [id number] Report ID: [id number]
== END 2021-04-07 17:19 | DRG 811 ==
LOC: 2ND 16:43
PROVIDERS: ADMIT Family Medicine; ATTEND Family Medicine
PROC: 30233N1 Transfusion of Nonautologous Red Blood Cells into Peripheral Vein, Percutaneous Approach (ICD-10-PCS; principal; 2021-04-06)
DX: D50.0 Iron deficiency anemia secondary to blood loss (chronic) (principal); E43 Unspecified severe protein-calorie malnutrition; C25.9 Malignant neoplasm of pancreas, unspecified; Z68.1 Body mass index [BMI] 19.9 or less, adult; D75.81 Myelofibrosis; G89.3 Neoplasm related pain (acute) (chronic)
CPT/HCPCS: 36415; 80048; 81003; 85025; 86850; 86900; 86901; 97116; 97161; 97530; J1650; P9016; U0003